=== PATIENT | male | born 1950 | race Caucasian/White ===

== ENCOUNTER 2020-06-12 12:12 | Inpatient (IN) | payer OTHER, SELFPAY ==
[~2020-06-12] VITALS: Ht 175.3 cm; Wt 77.1 kg
--- NOTE | 2020-06-12 12:20 | NUR ---
Patient BIBA ALS, transferred to bed 7. RN evaluating patient at bedside.
--- NOTE | 2020-06-12 12:25 | NUR ---
69 YO M BIBA FOR C/C OF SOB X4 DAYS. PT STATES HE WAS COVID POSITIVE 2 WEEKS AGO AND HAS HAD MILD SYMPTOMS UNTIL SOB BEGAN FOUR DAYS AGO. PT PRESENTS AT 90% O2 ON 15NRB. PT DENIES FEVER, COUGH, N/V/D. PT PLACED ON MARKETING DEVELOPMENT REPRESENTATIVE. BED LOCKED AND IN LOWEST POSITION. SIDE RAILS X2. MED HX: HTN, DM2, COVID
[2020-06-12 12:29] VITALS: BP 153/67
--- NOTE | 2020-06-12 13:08 | NUR ---
XRAY AT BEDSIDE.
--- NOTE | 2020-06-12 13:16 | NUR ---
LABS DRAWN AND TAKEN TO LAB, NOVEL/INFLUENZA/RSV SWABS COLLECTED AND SENT TO LAB
--- NOTE | 2020-06-12 13:26 | NUR ---
EKG AT BEDSIDE
[2020-06-12 13:34] LABS: BASOPHILS # (AUTO) 0.1 K/uL (0.00-0.22); BASOPHILS % (AUTO) 1.2 % (0.0-2.0); EOSINOPHILS # (AUTO) 0.1 K/uL (0-0.4); EOSINOPHILS % (AUTO) 0.5 % (0.0-4.0); HEMATOCRIT 35.9 % (36-52); HEMOGLOBIN 11.9 g/dL (12.0-18.0); LYMPHOCYTES # (AUTO) 0.6 K/uL (2.0-11.5); MEAN CORPUSCULAR HEMOGLOBIN 31 pg (27-31); MEAN CORPUSCULAR HGB CONC 33 g/dL (33-37); MONOCYTES # (AUTO) 0.8 K/uL (0.8-1.0); NEUTROPHILS # (AUTO) 8.8 K/uL (1.8-7.7); NEUTROPHILS % (AUTO) 84.3 % (42.2-75.2); PLATELET COUNT (AUTO) 342 K/uL (140-450); RED BLOOD CELL COUNT(AUTO) 3.82 MIL/uL (4.20-6.10); RED CELL DISTRIBUTION WIDTH 14.7 % (11.6-13.7); WHITE BLOOD COUNT (AUTO) 10.5 K/uL (4.8-10.8)
[2020-06-12] MEDS ORDERED: DEXAMETHASONE 10 MG/ML VIAL IVP ONE (13:35)
[2020-06-12] MEDS ORDERED: AZITHROMYCIN 1,000 MG in DEXTROSE 5% 500 ML IV ONE (13:35)
[2020-06-12 13:52] LABS: APPEARANCE,URINE CLEAR (CLEAR); BILIRUBIN,URINE 2+ (NEGATIVE); BLOOD, URINE NEGATIVE (NEGATIVE); COLOR,URINE ORANGE (YELLOW); LEUKOCYTE ESTERASE ,URINE NEGATIVE (NEGATIVE); NITRITE, URINE NEGATIVE (NEGATIVE); UGLUCOSE NEGATIVE (NEGATIVE)
--- NOTE | 2020-06-12 14:00 | NUR ---
TOTAL URINE OUTPUT VOIDED: 100CC, CLEAR, DANIELLE
[2020-06-12] MEDS ORDERED: AZITHROMYCIN 500 MG INJ VIAL IV ONE (14:02)
[2020-06-12 14:06] LABS: RBC,URINE 0-5 /HPF (0-5); WBC,URINE 0-5 /HPF (0-5)
[2020-06-12 14:13] LABS: ANION GAP 11.7 (8-16); CARBON DIOXIDE 27.1 mmol/L (21-32); CREATININE 0.9 mg/dL (0.6-1.3); POTASSIUM 3.8 mmol/L (3.5-5.1)
[2020-06-12 14:23] LABS: FIBRINOGEN 500 mg/dL (200-400); PROTHROMBIN TIME 11.7 secs (10.8-13.4)
[2020-06-12 14:36] LABS: D-DIMER > 5000 ng/ml (0-400)
[2020-06-12] MEDS ORDERED: ENOXAPARIN 40 MG/0.4 ML SYR SUBQ ONE (14:55)
--- NOTE | 2020-06-12 15:15 | NUR ---
Note undone in ED - 06/12/20 at 1909 by LARRY Smith* PT ASLEEP IN HIGH-FOWLERS . PT GIVEN CUP OF WATER PER REQUEST. ALL PT NEEDS MET AT THIS TIME. EQUAL CHEST RISE AND FALL. VENETIAN BLIND WORKER IN PLACE. BED LOCKED IN LOWEST POSITION, SIDE RAILS X2, CALL LIGHT IN REACH Addendum: 06/12/20 at 1907 by LARRY Smith* Amendment undone in ED - 06/12/20 at 1908 by LARRY Smith* PT SLEEPING IN POSITION OF COMFORT. ALL PT NEEDS MET AT THIS TIME. EQUAL CHEST RISE AND FALL. VENETIAN BLIND WORKER IN PLACE. BED LOCKED IN LOWEST POSITION, SIDE RAILS X2, CALL LIGHT IN REACH
--- NOTE | 2020-06-12 15:15 | NUR ---
PT SLEEPING IN POSITION OF COMFORT. ALL PT NEEDS MET AT THIS TIME. EQUAL CHEST RISE AND FALL. BASIC SCIENCES PROFESSOR IN PLACE. BED LOCKED IN LOWEST POSITION, SIDE RAILS X2, CALL LIGHT IN REACH
[2020-06-12] MEDS ORDERED: ALBUTEROL HFA MDI 90 MCG/ACTUATION 8 GM INH PRN (15:20)
[2020-06-12] MEDS ORDERED: DOCUSATE SODIUM 100 MG GELCAP PO PRN (15:20)
[2020-06-12] MEDS ORDERED: MORPHINE SULFATE 2 MG/ML SYR IVP PRN (15:20)
[2020-06-12] MEDS ORDERED: ZOLPIDEM 5 MG TAB PO PRN (15:20)
[2020-06-12] MEDS ORDERED: ONDANSETRON 4 MG/2 ML VIAL IVP PRN (15:20)
[2020-06-12] MEDS ORDERED: HYDROcodone/APAP 5/325 MG 1 TAB TAB PO PRN (15:20)
[2020-06-12] MEDS: NACL 0.9% 1,000 ML IV SCH (15:46)
[2020-06-12 16:04] LABS: CHOL/HDL RATIO 8.9 (1-4.5); FREE T4 (FREE THYROXINE) 1.4 ng/dL (0.76-1.46); MAGNESIUM 2.7 mg/dL (1.8-2.4); PHOSPHORUS 3.3 mg/dL (2.5-4.9); THYROID STIMULATING HORMONE 1.4 uIU/mL (0.34-3.74)
--- NOTE | 2020-06-12 16:08 | NUR ---
PT SITTING ASLEEP IN BED IN HIGH FOWLERS POSITION. EQUAL CHEST RISE AND FALL. SCHOOL BUS DISPATCHER IN PLACE. ALL PT NEEDS MET. BED LOCKED IN LOWEST POSITION, SIDE RAILS X2, CALL LIGHT IN REACH
[2020-06-12 16:32] LABS: C-REACTIVE PROTEIN QUANT 46.7 mg/dL (0.0-0.9)
[2020-06-12] MEDS ORDERED: METF500T2 PO (16:37)
[2020-06-12] MEDS ORDERED: LEVEMIR SUBQ (16:38)
[2020-06-12] MEDS ORDERED: LOSA100T51 PO (16:39)
[2020-06-12] MEDS ORDERED: INSU100S53 SC (16:39)
[2020-06-12] MEDS ORDERED: OMEP20TC22 PO (16:40)
[2020-06-12 17:01] LABS: LACTATE DEHYDROGENASE 418 U/L (85-227)
--- NOTE | 2020-06-12 18:10 | NUR ---
PT ASSISTED UP BED INTO POSITION OF COMFORT. PT GIVEN CUP OF WATER PER REQUEST. ALL PT NEEDS MET AT THIS TIME. EQUAL CHEST RISE AND FALL. USED CAR MAKE READY WORKER IN PLACE. BED LOCKED IN LOWEST POSITION, SIDE RAILS X2, CALL LIGHT IN REACH
--- NOTE | 2020-06-12 19:26 | NUR ---
REPORT AND TRANSFER OF CARE GIVEN TO HEDY RODRIGUEZ
--- NOTE | 2020-06-12 19:30 | NUR ---
RECEIVED REPORT FROM HEDY CLIFFORD AND [facility]
[2020-06-12] MEDS ORDERED: DEXTROSE 50% 50 ML SYR IVP PRN ×2 (20:05→20:10)
--- NOTE | 2020-06-12 20:05 | NUR ---
JENNIFER SWAB DONE AND HANDED TO PAPER FEEDER
[2020-06-12] MEDS ORDERED: INSULIN LISPRO SLIDING SCALE 100 UNITS/ML VIAL SUBQ PRN (20:10)
[2020-06-12 20:44] LABS: RSV NEGATIVE (NEGATIVE)
[2020-06-12] MEDS ORDERED: BLOOD GLUCOSE MONITORING 1 DEV DEV FS SCH (21:00)
[2020-06-12] MEDS: BLOOD GLUCOSE MONITORING 1 DEV DEV FS SCH (21:29)
--- NOTE | 2020-06-12 23:26 | NUR ---
PT RESTING IN BED WITH NON REBREATHER ON. VSS AND PT APPEARS TO BE IN NO DISTRESS AT THIS TIME.
[2020-06-13] MEDS: NACL 0.9% 1,000 ML IV SCH ×3 (01:39→21:00)
--- NOTE | 2020-06-13 04:15 | NUR ---
Patient appears to be resting comfortably in bed. Vital Signs within normal limits. Respirations even and unlabored.
--- NOTE | 2020-06-13 06:43 | NUR ---
PT ACCIDENTLY PULLED OUT IV FROM LEFT AC. INSERTED A NEW IV INTO RAC 20G
--- NOTE | 2020-06-13 07:21 | NUR ---
REPORT RECEIVED FROM HEDY RODRIGUEZ
[2020-06-13] MEDS ORDERED: ENOXAPARIN 40 MG/0.4 ML SYR SUBQ ONE (07:28)
[2020-06-13] MEDS ORDERED: AZITHROMYCIN 250 MG TAB ONE (07:28)
[2020-06-13] MEDS ORDERED: PANTOPRAZOLE 40 MG TABEC PO ONE (07:29)
[2020-06-13] MEDS: BLOOD GLUCOSE MONITORING 1 DEV DEV FS SCH ×4 (07:30→20:47)
[2020-06-13] MEDS ORDERED: LOSARTAN 25 MG TAB ONE ×2 (07:33→07:36)
[2020-06-13] MEDS: INSULIN LANTUS 100 UNITS/ML 10 ML VIAL SUBQ SCH ×2 (07:34→16:45)
[2020-06-13] MEDS: metFORMIN 500 MG TAB PO SCH ×2 (07:34→17:21)
[2020-06-13] MEDS: LOSARTAN 25 MG TAB PO SCH (07:35)
[2020-06-13] MEDS: PANTOPRAZOLE 40 MG TABEC PO SCH (07:36)
[2020-06-13] MEDS: AZITHROMYCIN 250 MG TAB PO SCH (07:36)
[2020-06-13] MEDS: ENOXAPARIN 40 MG/0.4 ML SYR SUBQ SCH (07:36)
[2020-06-13] MEDS ORDERED: ASCORBIC ACID 500 MG TAB ONE (07:37)
[2020-06-13] MEDS: ASCORBIC ACID 500 MG TAB PO SCH (07:38)
--- NOTE | 2020-06-13 08:31 | NUR ---
PT PLACED IN PRONE POSITION FOR DESAT TO 80% ON 15NRB. PT NOW AT 89% IN PRONE POSITION. EQUAL CHEST RISE AND FALL. HUMANE OFFICER/PULSE OX IN PLACE.
--- NOTE | 2020-06-13 08:35 | NUR ---
BREAKFAST TRAY PROVIDED TO PT BUT UNABLE TO EAT DUE TO NECESSITY TO STAY IN PRONE POSITION.
[2020-06-13] MEDS: VITAMIN D 400 IU TAB PO SCH (09:05)
--- NOTE | 2020-06-13 10:20 | NUR ---
PT DESAT TO 62% ON 15NRB WHILE USING BEDSIDE COMMODE. PT PLACED BACK IN BED IN PRONE POSITION AFTER HAVING DIARRHEA STOOL ON COMMODE. PT BACK TO 94% IN PRONE POSITION. PT PLACED IN DIAPER AND TOLD NOT TO AMBULATE TO COMMODE ANYMORE. MADE AWARE OF PT DESAT, BIPAP ORDER PLACED IF NEEDED. RT AGREES TO HOLD OFF ON BIPAP IF WE CAN MAINTAIN O2 SAT IN PRONE POSITION.
--- NOTE | 2020-06-13 11:10 | NUR ---
PT MAINTAINING 94% O2 SAT IN PRONE POSITION.
[2020-06-13] MEDS: INSULIN LISPRO SLIDING SCALE 100 UNITS/ML VIAL SUBQ PRN ×3 (11:45→20:59)
--- NOTE | 2020-06-13 13:20 | NUR ---
PT'S DAUGHTER CALLED AND RECEIVED STATUS UPDATE ON PT
--- NOTE | 2020-06-13 13:30 | NUR ---
PT ASLEEP IN PRONE POSITION MAINTAINING O2 SAT OF 99%. EQUAL CHEST RISE AND FALL. BED LOCKED AND IN LOWEST POSITION. SIDE RAILS X2. RELATIONS COORDINATOR/PULSE OX IN PLACE. CALL LIGHT IN REACH.
--- NOTE | 2020-06-13 13:37 | NUR ---
PATIENT HAS BEEN SCREENED AND CATEGORIZED MODERATE NUTRITION RISK. PATIENT WILL BE SEEN WITHIN 3-5 DAYS OF ADMISSION. 06/14/20 06/16/[address]
--- NOTE | 2020-06-13 14:45 | NUR ---
PT IS ASLEEP IN PRONE POSITION WITH O2 SAT 99%. EQUAL CHEST RISE AND FALL. ALL PT NEEDS MET AT THIS TIME. BAND MANAGER/PULSE OX IN PLACE. BED LOCKED IN LOWEST POSITION, SIDE RAILS X2, CALL LIGHT IN REACH
--- NOTE | 2020-06-13 15:30 | NUR ---
PT DESAT TO 79% ON 15NRB WHEN ATTEMPTING TO CHNAGE POSITION. PT PLACED BACK IN PRONE POSITION, NOW SATING AT 99% 15NRB. POSITIONED FOR COMFORT. CALL LIGHT IN REACH. ALL PT NEEDS MET AT THIS TIME.
[2020-06-13] MEDS: ACETAMINOPHEN 325 MG TAB PO PRN (15:58)
--- NOTE | 2020-06-13 15:58 | NUR ---
PT MEDICATED WITH PRN TYLENOL FOR 5/10 BODY PAIN
[2020-06-13] MEDS ORDERED: cefTRIAXone 1,000 MG VIAL ONE (16:13)
--- NOTE | 2020-06-13 17:05 | NUR ---
PT ASLEEP IN PRONE POSITION. EQUAL CHEST RISE AND FALL. ALL PT NEEDS MET AT THIS TIME. BED LOCKED IN LOWEST POSITION, SIDE RAILS X 2, CALL LIGHT IN REACH
--- NOTE | 2020-06-13 18:57 | NUR ---
PT PROVIDED WITH DINNER TRAY
--- NOTE | 2020-06-13 19:20 | NUR ---
REPORT AND TRANSFER OF CARE GIVEN TO HEDY ARRIAGA
--- NOTE | 2020-06-13 19:27 | NUR ---
Report received from HEDY Blunt for continuation of care.
--- NOTE | 2020-06-13 20:30 | NUR ---
Pt laying in prone position, per pt he is feeling comfortable and feels like he can breathe better in this position. VSS. Oxygen level at 99% on 15L NRB.
--- NOTE | 2020-06-13 22:58 | NUR ---
Pt sleeping in prone position, visible rise and fall of chest. RR even and unlabored. VSS. Oxygen level 100% at this time.
--- NOTE | 2020-06-14 00:05 | NUR ---
Pt c/o of having SOB & CP pain on inpiration, Oxygen level 77% on 15L NRB. Pt repositioned from prone to supine w/ HOB elevated. Will continue to monitor.
--- NOTE | 2020-06-14 00:48 | NUR ---
Pt resting supine w/ HOB elevated, side rail x2 for pt safety. VSS. Oxygen level 91% on 15L NRB.
--- NOTE | 2020-06-14 02:22 | NUR ---
Pt repositioned to prone per pt request, hob slightly elevated , cardiac monitors placed on pt back. VSS. Oxygen level currently 97%.
--- NOTE | 2020-06-14 03:37 | NUR ---
Pt sleeping in prone position, oxygen level 100% on 15L NRB. No acute distress noted. VSS.
[2020-06-14] MEDS: INSULIN LANTUS 100 UNITS/ML 10 ML VIAL SUBQ SCH ×2 (06:53→16:47)
[2020-06-14] MEDS: BLOOD GLUCOSE MONITORING 1 DEV DEV FS SCH ×4 (06:58→21:14)
[2020-06-14] MEDS: NACL 0.9% 1,000 ML IV SCH ×2 (06:58→17:06)
--- NOTE | 2020-06-14 07:29 | NUR ---
Report given to HEDY Colin for transfer of care.
--- NOTE | 2020-06-14 08:00 | NUR ---
PT ALERT AND AWAKE, REMAINS IN PRONE POSITION 15L NRB MASK, BREATHING EVEN AND LABORED. WILL CONTINUE TO MONITOR
[2020-06-14] MEDS: metFORMIN 500 MG TAB PO SCH ×2 (08:50→17:06)
[2020-06-14] MEDS: VITAMIN D 400 IU TAB PO SCH (08:51)
[2020-06-14] MEDS: LOSARTAN 25 MG TAB PO SCH (08:52)
[2020-06-14] MEDS: PANTOPRAZOLE 40 MG TABEC PO SCH (08:53)
[2020-06-14] MEDS: ASCORBIC ACID 500 MG TAB PO SCH (08:54)
[2020-06-14] MEDS: AZITHROMYCIN 250 MG TAB PO SCH (08:54)
[2020-06-14] MEDS: ENOXAPARIN 40 MG/0.4 ML SYR SUBQ SCH (08:56)
[2020-06-14 09:32] LABS: ANION GAP 13.7 (8-16); CARBON DIOXIDE 27.4 mmol/L (21-32); CREATININE 0.8 mg/dL (0.6-1.3); MAGNESIUM 2.4 mg/dL (1.8-2.4); PHOSPHORUS 2.7 mg/dL (2.5-4.9); POTASSIUM 4.1 mmol/L (3.5-5.1); TOTAL BILIRUBIN 0.5 mg/dL (0.0-1.0)
[2020-06-14 09:38] LABS: BASOPHILS % (AUTO) 0.1 % (0.0-2.0); HEMATOCRIT 39.4 % (36-52); HEMOGLOBIN 12.8 g/dL (12.0-18.0); LYMPHOCYTES # (AUTO) 0.8 K/uL (2.0-11.5); LYMPHOCYTES % (AUTO) 5.7 % (20.5-51.1); MEAN CORPUSCULAR HEMOGLOBIN 31 pg (27-31); MEAN CORPUSCULAR HGB CONC 33 g/dL (33-37); MEAN CORPUSCULAR VOLUME 95.9 fL (80-94); MONOCYTES # (AUTO) 0.7 K/uL (0.8-1.0); MONOCYTES % (AUTO) 5.2 % (1.7-9.3); NEUTROPHILS # (AUTO) 12.6 K/uL (1.8-7.7); PLATELET COUNT (AUTO) 417 K/uL (140-450); RED BLOOD CELL COUNT(AUTO) 4.11 MIL/uL (4.20-6.10); RED CELL DISTRIBUTION WIDTH 15.3 % (11.6-13.7); WHITE BLOOD COUNT (AUTO) 14.2 K/uL (4.8-10.8)
--- NOTE | 2020-06-14 10:00 | NUR ---
PT ALERT AND AWAKE, REMAINS IN PRONE POSITION 15L NRB MASK, BREATHING EVEN AND LABORED. WILL CONTINUE TO MONITOR
[2020-06-14 10:38] LABS: CKMB RELATIVE INDEX 0.5 (0.0-2.5); CREATINE KINASE MB 3.1 ng/mL (0-3.6)
--- NOTE | 2020-06-14 12:00 | NUR ---
PT ALERT AND AWAKE, REMAINS IN PRONE POSITION 15L NRB MASK, BREATHING EVEN AND LABORED. WILL CONTINUE TO MONITOR
[2020-06-14] MEDS ORDERED: cefTRIAXone 1,000 MG VIAL ONE (16:04)
--- NOTE | 2020-06-14 19:27 | NUR ---
RECEIVED REPORT FROM HEDY ADRIAN AND [facility]
--- NOTE | 2020-06-14 19:27 | NUR ---
REPORT GIVEN TO JENNIFER KNOTT, TRANSFER OF CARE AT THIS TIME
--- NOTE | 2020-06-14 21:46 | NUR ---
PT LAYING PRON IN BED. ONE SIDE RAIL UP AND BED LOWEST POSITION. ALL VSS AT THIS TIME.
--- NOTE | 2020-06-14 22:36 | NUR ---
PT HAD A LOOSE WATERY BM. PERICARE PROVIDED. NO SKIN BRWEAKDOWN NOTED.
--- NOTE | 2020-06-14 23:11 | NUR ---
PT FAMILY CALLED FOR UPDATE ON PT.
--- NOTE | 2020-06-15 01:23 | NUR ---
PT LAYING PRONE IN BED ASLEEP IN BED AT THIS TIME. ALL VSS. ONE SIDE RAIL UP AND BED IN LOWEST POSITION.
--- NOTE | 2020-06-15 03:05 | NUR ---
PT SLEEPING IN PRONE POSITION WITH VISIBLE RISE AND FALL OF CHEST. RESPIRATIONS ARE EVEN AND UNLABORED. PT HAS NON REBREATHER MASK AT 100% O2 AT THIS TIME. VSS.
[2020-06-15] MEDS: NACL 0.9% 1,000 ML IV SCH ×3 (04:04→22:59)
--- NOTE | 2020-06-15 05:11 | NUR ---
PT ASLEEP IN PRONE POSITION MAINTAINING O2 SAT OF 99%. EQUAL CHEST RISE AND FALL. BED LOCKED AND IN LOWEST POSITION. SIDE RAILS X2. COLLAR TRIMMER/PULSE OX IN PLACE. CALL LIGHT IN REACH.
[2020-06-15] MEDS: BLOOD GLUCOSE MONITORING 1 DEV DEV FS SCH ×5 (07:34→23:00)
[2020-06-15] MEDS: INSULIN LANTUS 100 UNITS/ML 10 ML VIAL SUBQ SCH ×2 (07:35→16:43)
[2020-06-15] MEDS: metFORMIN 500 MG TAB PO SCH ×2 (07:36→17:00)
[2020-06-15] MEDS ORDERED: CHOLECALCIFEROL 1,000 IU TAB ONE (08:01)
[2020-06-15] MEDS: VITAMIN D 400 IU TAB PO SCH (08:17)
[2020-06-15] MEDS: LOSARTAN 25 MG TAB PO SCH (08:18)
[2020-06-15] MEDS: PANTOPRAZOLE 40 MG TABEC PO SCH (08:19)
[2020-06-15] MEDS: ASCORBIC ACID 500 MG TAB PO SCH (08:19)
[2020-06-15] MEDS: AZITHROMYCIN 250 MG TAB PO SCH (08:20)
[2020-06-15] MEDS: ENOXAPARIN 40 MG/0.4 ML SYR SUBQ SCH (08:21)
--- NOTE | 2020-06-15 08:30 | NUR ---
PT REMAINS ALERT AND AWAKE, BREATHING EVEN AND UNLABORED ON 15L NRB MASK, SPO2 99%
--- NOTE | 2020-06-15 10:10 | NUR ---
RECEIVED THIS 69 YEAR OLD MALE PER BRY FROM ER, AWAKE,ALERT, ORIENTEDX4, WITH O2 AT 15/MIN VIA NON REBREATHER MASK, NOT IN DISTRESS NOTED. ADMITTED A CASE OF COVID AND PNEUMONIA, HYPOXIA. WITH IV CANNULA G20 AT RT AC ON SALINE LOCKED NOTED. SAFETY MEASURES IN PLACE AND CONTINUE MONITOR.
--- NOTE | 2020-06-15 10:10 | NUR ---
Patient will be admitted to care of DR. MULLINS. Admited to TELE. Will go to room 105B. Belongings list completed. Report to AWA KNOTT.
[2020-06-15 10:27] LABS: BASOPHILS % (AUTO) 0.3 % (0.0-2.0); EOSINOPHILS % (AUTO) 0.3 % (0.0-4.0); HEMOGLOBIN 12.7 g/dL (12.0-18.0); LYMPHOCYTES # (AUTO) 0.8 K/uL (2.0-11.5); LYMPHOCYTES % (AUTO) 5.5 % (20.5-51.1); MEAN CORPUSCULAR HEMOGLOBIN 31 pg (27-31); MEAN CORPUSCULAR HGB CONC 32 g/dL (33-37); MEAN CORPUSCULAR VOLUME 95.4 fL (80-94); MONOCYTES # (AUTO) 0.7 K/uL (0.8-1.0); MONOCYTES % (AUTO) 4.6 % (1.7-9.3); NEUTROPHILS # (AUTO) 13.6 K/uL (1.8-7.7); NEUTROPHILS % (AUTO) 89.3 % (42.2-75.2); PLATELET COUNT (AUTO) 439 K/uL (140-450); RED BLOOD CELL COUNT(AUTO) 4.09 MIL/uL (4.20-6.10); RED CELL DISTRIBUTION WIDTH 15.2 % (11.6-13.7); WHITE BLOOD COUNT (AUTO) 15.2 K/uL (4.8-10.8)
[2020-06-15 10:54] LABS: ANION GAP 12.3 (8-16); CREATININE 0.7 mg/dL (0.6-1.3); POTASSIUM 4.3 mmol/L (3.5-5.1)
--- NOTE | 2020-06-15 12:26 | NUR ---
GLUCOSE-76 NO INSULIN COVERAGE, STILL ON PRONE POSITION,NOT IN DISTRESS NOTED
--- NOTE | 2020-06-15 14:20 | NUR ---
ON LEFT SIDE LYING POSITION , STILL ON NON REBREATHER MASK, NOT IN DISTRESS NOTED
--- NOTE | 2020-06-15 16:41 | NUR ---
GLUCOSE-107, NO INSULIN COVERAGE FOR HUMALOG, DUE LANTUS SUBQ GIVEN. NOT IN DISTRESS NOTED AND ABLE TO TURN AT LEFT SIDE LYING POSITION.
--- NOTE | 2020-06-15 17:11 | NUR ---
DUE METFORMIN NON ADMINISTER, PATIENT HAD POOR APPETITE AND ON O2 AT 15L/MIN VIA NON REBREATHER MASK.
--- NOTE | 2020-06-15 19:14 | NUR ---
ENDORSED TO SOCIAL HUMAN SERVICES ASSISTANTS IN STABLE CONDITION FOR CONTINUITY OF CARE
[2020-06-15 20:00] VITALS: BP 131/61
[2020-06-16] VITALS: BP 146/59
--- NOTE | 2020-06-16 | NUR ---
MADE ROUNDS , NO S/SX OF ACUTE DISTRESS NOTED . CALL LIGHT WITHIN REACH .
[2020-06-16 04:00] VITALS: BP 127/46
--- NOTE | 2020-06-16 04:00 | NUR ---
O2 SAT WNL . NO S/SX OF ACUTE DISTRESS NOTED
[2020-06-16] MEDS: INSULIN LANTUS 100 UNITS/ML 10 ML VIAL SUBQ SCH ×2 (06:07→17:30)
[2020-06-16] MEDS: BLOOD GLUCOSE MONITORING 1 DEV DEV FS SCH ×4 (06:07→22:15)
--- NOTE | 2020-06-16 06:30 | NUR ---
ACCU CHECK - 61 - WILL GIVE ORANGE JUICE AND VANILLA PUDDING .
--- NOTE | 2020-06-16 07:40 | NUR ---
ENDORSED PT - STABLE - ENDORSED TO AM NURSE SHE HAVE TO RE CHECK THE BLOOD SUGAR BEC . PT JUST ATE PUDDING .
[2020-06-16 07:54] LABS: BASOPHILS # (AUTO) 0.1 K/uL (0.00-0.22); BASOPHILS % (AUTO) 0.7 % (0.0-2.0); EOSINOPHILS # (AUTO) 0.1 K/uL (0-0.4); EOSINOPHILS % (AUTO) 0.4 % (0.0-4.0); HEMATOCRIT 35.7 % (36-52); HEMOGLOBIN 11.7 g/dL (12.0-18.0); LYMPHOCYTES # (AUTO) 1.3 K/uL (2.0-11.5); LYMPHOCYTES % (AUTO) 9.2 % (20.5-51.1); MEAN CORPUSCULAR HEMOGLOBIN 31 pg (27-31); MEAN CORPUSCULAR HGB CONC 33 g/dL (33-37); MEAN CORPUSCULAR VOLUME 94.9 fL (80-94); MONOCYTES # (AUTO) 0.6 K/uL (0.8-1.0); MONOCYTES % (AUTO) 4.4 % (1.7-9.3); NEUTROPHILS # (AUTO) 12.5 K/uL (1.8-7.7); NEUTROPHILS % (AUTO) 85.3 % (42.2-75.2); PLATELET COUNT (AUTO) 409 K/uL (140-450); RED BLOOD CELL COUNT(AUTO) 3.76 MIL/uL (4.20-6.10); RED CELL DISTRIBUTION WIDTH 15.3 % (11.6-13.7); WHITE BLOOD COUNT (AUTO) 14.6 K/uL (4.8-10.8)
[2020-06-16 08:00] VITALS: BP 107/59
[2020-06-16] MEDS: metFORMIN 500 MG TAB PO SCH ×2 (08:16→18:05)
[2020-06-16] MEDS: AZITHROMYCIN 250 MG TAB PO SCH (08:17)
[2020-06-16] MEDS: PANTOPRAZOLE 40 MG TABEC PO SCH (08:17)
[2020-06-16] MEDS: ASCORBIC ACID 500 MG TAB PO SCH (08:17)
[2020-06-16] MEDS: VITAMIN D 400 IU TAB PO SCH (08:18)
[2020-06-16] MEDS: LOSARTAN 25 MG TAB PO SCH (08:19)
[2020-06-16] MEDS: ENOXAPARIN 40 MG/0.4 ML SYR SUBQ SCH (08:19)
[2020-06-16 08:23] LABS: ANION GAP 14.7 (8-16); CARBON DIOXIDE 24.1 mmol/L (21-32); CREATININE 0.6 mg/dL (0.6-1.3); POTASSIUM 3.8 mmol/L (3.5-5.1)
--- NOTE | 2020-06-16 08:37 | NUR ---
ADMINISTERED PRESCRIBED MEDS PER MD ORDER. PATIENT TOLERATED WELL. MEDICATION EDUCATION PROVIDED. REINFORCEMENT NEEDED DUE TO LANGUAGE BARRIER. SAFETY MEASURES IN PLACE. WILL CONT TO MONITOR.
[2020-06-16 12:00] VITALS: BP 134/67
[2020-06-16] MEDS: NACL 0.9% 1,000 ML IV SCH ×2 (12:42→23:06)
--- NOTE | 2020-06-16 12:42 | NUR ---
PATIENT BG 116, NO INSULIN COVERAGE NEEDED. PATIENT IVF GIVEN. CHEST XRAY CURRENTLY BEING CONDUCTED AT BEDSIDE. SAFETY MEASURES IN PLACE. WILL CONT TO MONITOR.
--- NOTE | 2020-06-16 14:36 | NUR ---
SOCIAL WORK NOTE: JASWINDER WAS UNABLE TO MEET PATIENT AT BEDSIDE. JASWINDER LEFT VM TO PATIENT'S CONTACT NUMBER [phone] AND LEFT VM. JASWINDER CONTACTED RN BUT NO ADDITIONAL CONTACTS WERE AVAILABLE. JASWINDER WILL FOLLOW UP. Addendum: 06/19/20 at 1034 by Virgilio Cui JASWINDER LEFT ADDITIONAL VM TO PATIENT'S CONTACT. JASWINDER CONTACTED RN BUT NO ADDITIONAL CONTACTS WERE AVAILABLE. JASWINDER WILL CONTINUE TO FOLLOW UP. Addendum: 06/24/20 at 1143 by Virgilio Cui JASWINDER CONTACTED NURSE FOR ADDITIONAL CONTACTS BUT NO CONTACTS WERE AVAILABLE. JASWINDER WILL FOLLOW UP TO COMPLETE ASSESSMENT.
[2020-06-16 16:00] VITALS: BP 112/60
--- NOTE | 2020-06-16 16:33 | NUR ---
ADMINISTERED PRESCRIBED MEDS PER MD ORDER. PATIENT TOLERATED WELL. MEDICATION REINFORCEMENT NEEDED. SAFETY MEASURES IN PLACE. WILL CONT TO MONITOR.
--- NOTE | 2020-06-16 17:14 | NUR ---
06/16/20 RD INITIAL ASSESSMENT COMPLETED PLEASE REFER TO NUTRITION ASSESSMENT UNDER CARE ACTIVITY FOR ESTIMATED NUTRITIONAL NEEDS. 1. CONTINUE GROUND CCHO 60GM DIET TOLERATED 2. RECOMMEND GLUCERNA TID 3. ENCOURAGE PO INTAKE >50% 4. RD TO FOLLOW-UP 2-3 DAYS, HIGH RISK TERRY LY, RD
--- NOTE | 2020-06-16 17:34 | NUR ---
ADMINISTERED PRESCRIBED INSULIN LANTUS PER MD ORDER. PATIENT BG 185. PATIENT TOLERATED WELL. SAFETY MEASURES IN PLACE. WILL CONT TO MONITOR.
--- NOTE | 2020-06-16 18:09 | NUR ---
ADMINISTERED PRESCRIBED MEDS PER MD ORDER. PATIENT TOLERATED WELL. REINFORCEMENT NEEDED DUE TO LANGUAGE BARRIER. SAFETY MEASURES IN PLACE. WILL CONT TO MONITOR.
[2020-06-16 20:00] VITALS: BP 118/56
[2020-06-16] MEDS: INSULIN LISPRO SLIDING SCALE 100 UNITS/ML VIAL SUBQ PRN (23:07)
[2020-06-17] VITALS: BP 119/59
--- NOTE | 2020-06-17 | NUR ---
MADE ROUNDS , NO S/SX OF ACUTE DISTRESS NOTED . CALL LIGHT WITHIN REACH . O2 SAT WNL.
--- NOTE | 2020-06-17 02:00 | NUR ---
SLEEPING - CHEST RISE AND FALL EQUALLY .
--- NOTE | 2020-06-17 04:00 | NUR ---
O2 SAT WNL . NO S/SX OF ACUTE DISTRESS NOTED .
[2020-06-17] MEDS: NACL 0.9% 1,000 ML IV SCH ×2 (05:20→15:20)
[2020-06-17 06:07] VITALS: BP 122/69
[2020-06-17] MEDS: INSULIN LANTUS 100 UNITS/ML 10 ML VIAL SUBQ SCH ×2 (06:30→16:48)
[2020-06-17] MEDS: BLOOD GLUCOSE MONITORING 1 DEV DEV FS SCH ×3 (07:01→16:44)
--- NOTE | 2020-06-17 07:25 | NUR ---
ENDORSED - PT - STABLE .
--- NOTE | 2020-06-17 07:30 | NUR ---
RECEIVED REPORT FROM NIGHTSHIFT NURSE. PT RESTING IN BED. ABLE TO MAKE NEEDS KNOWN. RESPIRATIONS EVEN AND UNLABORED WITH NO SOB OR RESPIRATORY DISTRESS. SKIN WARM AND DRY TO TOUCH. IV SITE IN L HAND 22G IS CLEAN, DRY, AND INTACT. SAFETY MEASURES IN PLACE. WILL CONTINUE TO MONITOR
[2020-06-17 08:00] VITALS: BP 102/51
[2020-06-17] MEDS: metFORMIN 500 MG TAB PO SCH ×2 (08:00→16:50)
[2020-06-17 08:35] LABS: BASOPHILS % (AUTO) 0.2 % (0.0-2.0); EOSINOPHILS # (AUTO) 0.1 K/uL (0-0.4); EOSINOPHILS % (AUTO) 0.4 % (0.0-4.0); HEMATOCRIT 36.3 % (36-52); HEMOGLOBIN 11.8 g/dL (12.0-18.0); LYMPHOCYTES # (AUTO) 1.1 K/uL (2.0-11.5); LYMPHOCYTES % (AUTO) 8.6 % (20.5-51.1); MEAN CORPUSCULAR HEMOGLOBIN 31 pg (27-31); MEAN CORPUSCULAR HGB CONC 33 g/dL (33-37); MONOCYTES # (AUTO) 0.6 K/uL (0.8-1.0); MONOCYTES % (AUTO) 4.6 % (1.7-9.3); NEUTROPHILS # (AUTO) 11.1 K/uL (1.8-7.7); NEUTROPHILS % (AUTO) 86.2 % (42.2-75.2); PLATELET COUNT (AUTO) 394 K/uL (140-450); RED BLOOD CELL COUNT(AUTO) 3.83 MIL/uL (4.20-6.10); RED CELL DISTRIBUTION WIDTH 15.3 % (11.6-13.7); WHITE BLOOD COUNT (AUTO) 12.8 K/uL (4.8-10.8)
--- NOTE | 2020-06-17 09:30 | NUR ---
ADMINISTERED SCHED MED PRESCRIBED PER MD ORDER. PT TOLERATED WELL. MEDICATION EDUCATION PERFORMED. PT VERBALIZED UNDERSTANDING. SAFETY MEASURES IN PLACE. WILL CONTINUE TO MONITOR
[2020-06-17] MEDS: LOSARTAN 25 MG TAB PO SCH (09:55)
[2020-06-17] MEDS: VITAMIN D 400 IU TAB PO SCH (09:55)
[2020-06-17] MEDS: PANTOPRAZOLE 40 MG TABEC PO SCH (09:56)
[2020-06-17] MEDS: AZITHROMYCIN 250 MG TAB PO SCH (09:56)
[2020-06-17] MEDS: ASCORBIC ACID 500 MG TAB PO SCH (09:57)
[2020-06-17 10:12] LABS: ANION GAP 13.4 (8-16); CREATININE 0.6 mg/dL (0.6-1.3); POTASSIUM 4.4 mmol/L (3.5-5.1)
[2020-06-17] MEDS ORDERED: ENOXAPARIN 40 MG/0.4 ML SYR SUBQ SCH (10:15)
--- NOTE | 2020-06-17 11:30 | NUR ---
PT BLOOD SUGAR IS 86. NO INSULIN NEEDED AT THIS TIME. SAFETY MEASURES IN PLACE. WILL CONTINUE TO MONITOR
[2020-06-17 12:00] VITALS: BP 135/54
--- NOTE | 2020-06-17 13:15 | NUR ---
PT RESTING IN BED. ABLE TO MAKE NEEDS KNOWN. RESPIRATIONS EVEN AND UNLABORED WITH NO SOB OR RESPIRATORY DISTRESS. SKIN WARM AND DRY TO TOUCH. SAFETY MEASURES IN PLACE. WILL CONTINUE TO MONITOR
[2020-06-17 16:00] VITALS: BP 114/72
--- NOTE | 2020-06-17 16:30 | NUR ---
PT BLOOD SUGAR IS 144. NO INSULIN NEEDED AT THIS TIME. SAFETY MEASURES IN PLACE. WILL CONTINUE TO MONITOR
--- NOTE | 2020-06-17 17:09 | NUR ---
ADMINISTERED SCHED MED PRESCRIBED PER MD ORDER. PT TOLERATED WELL. MEDICATION EDUCATION PERFORMED. PT VERBALIZED UNDERSTANDING. SAFETY MEASURES IN PLACE. WILL CONTINUE TO MONITOR
[2020-06-17 20:00] VITALS: BP 124/60
[2020-06-17] MEDS: ENOXAPARIN 80 MG/0.8 ML SYR SUBQ SCH (22:15)
[2020-06-17] MEDS: INSULIN LISPRO SLIDING SCALE 100 UNITS/ML VIAL SUBQ PRN (22:15)
[2020-06-18] VITALS: BP 156/64
--- NOTE | 2020-06-18 | NUR ---
MADE ROUNDS , NO S/SX OF ACUTE DISTRESS NOTED , O2 SAT WNL .
--- NOTE | 2020-06-18 02:00 | NUR ---
SLEEPING - CALL LIGHT WITHIN REACH .
[2020-06-18 04:00] VITALS: BP 143/58
--- NOTE | 2020-06-18 04:00 | NUR ---
O2 SAT WNL . NO S/SX OF ACUTE DISTRESS NOTED . CALL LIGHT WITHIN REACH .
--- NOTE | 2020-06-18 06:00 | NUR ---
NO COMPLAIN MADE - O2 SAT WNL .
[2020-06-18] MEDS: NACL 0.9% 1,000 ML IV SCH ×3 (06:35→20:17)
[2020-06-18] MEDS: INSULIN LANTUS 100 UNITS/ML 10 ML VIAL SUBQ SCH ×2 (06:37→16:30)
[2020-06-18] MEDS: INSULIN LISPRO SLIDING SCALE 100 UNITS/ML VIAL SUBQ PRN ×3 (06:39→21:26)
[2020-06-18] MEDS: BLOOD GLUCOSE MONITORING 1 DEV DEV FS SCH ×4 (06:40→21:26)
--- NOTE | 2020-06-18 07:50 | NUR ---
ENDORSED TO AM SHIFT - FOR CONSENT FOR CT ANGIO CHEST - THE PT IS STILL UNDECIDED FOR CT ANGIO CHEST - I TOLD TO THE AM NURSE LET DOCTOR OR COMPACTING MACHINE OPERATOR/TENDER RE EXPLAIN TO THE PT WHAT IS CT ANGIO CHEST IS ALL ABOUT .
[2020-06-18] MEDS: metFORMIN 500 MG TAB PO SCH ×2 (08:00→17:00)
[2020-06-18 08:47] LABS: ANION GAP 9.9 (8-16); CARBON DIOXIDE 28.7 mmol/L (21-32); CREATININE 0.7 mg/dL (0.6-1.3); POTASSIUM 4.6 mmol/L (3.5-5.1)
[2020-06-18 08:57] LABS: BASOPHILS % (AUTO) 0.4 % (0.0-2.0); EOSINOPHILS % (AUTO) 0.1 % (0.0-4.0); HEMATOCRIT 35.2 % (36-52); HEMOGLOBIN 11.6 g/dL (12.0-18.0); LYMPHOCYTES # (AUTO) 0.9 K/uL (2.0-11.5); LYMPHOCYTES % (AUTO) 9.2 % (20.5-51.1); MEAN CORPUSCULAR HEMOGLOBIN 31 pg (27-31); MEAN CORPUSCULAR HGB CONC 33 g/dL (33-37); MEAN CORPUSCULAR VOLUME 94.8 fL (80-94); MONOCYTES # (AUTO) 0.4 K/uL (0.8-1.0); MONOCYTES % (AUTO) 4.8 % (1.7-9.3); NEUTROPHILS % (AUTO) 85.5 % (42.2-75.2); PLATELET COUNT (AUTO) 401 K/uL (140-450); RED BLOOD CELL COUNT(AUTO) 3.71 MIL/uL (4.20-6.10); RED CELL DISTRIBUTION WIDTH 14.9 % (11.6-13.7); WHITE BLOOD COUNT (AUTO) 9.3 K/uL (4.8-10.8)
[2020-06-18] MEDS: ENOXAPARIN 80 MG/0.8 ML SYR SUBQ SCH ×2 (09:00→21:25)
[2020-06-18] MEDS: LOSARTAN 25 MG TAB PO SCH (09:01)
[2020-06-18] MEDS: VITAMIN D 400 IU TAB PO SCH (09:08)
[2020-06-18] MEDS: PANTOPRAZOLE 40 MG TABEC PO SCH (09:09)
[2020-06-18] MEDS: ASCORBIC ACID 500 MG TAB PO SCH (09:24)
--- NOTE | 2020-06-18 12:03 | NUR ---
DC PLANNIN YRS OLD MALE PATIENT WAS ADMITTED FROM HOME WITH A DX OF SEVER HYPOXIA, COVID PNEUMONIA. RAPID AND PCR COVID TEST NEGATIVE, PT IS ON 15LNRB SATING 93%. URINE CULTURE PENDING. CONSULTED WITH ID AND TALHA. DC PLAN TO GO HOME WHEN STABLE CM TO FOLLOW Addendum: 06/21/20 at 1609 by Elizabeth Osman CM DC ASSISTANT TO THE VICE PRESIDENT: RECEIVED AN ORDER FOR HOME O2, SEEN IN THE H&P THAT PATIENT WAS PREVIOUSLY SENT HOME WITH HOME O2 CONTACTED PATIENTS DAUGHTER SARA [phone] TO CLARIFY. SHE STATED THAT PATIENT ALREADY HAS HOME O2. NOTIFIED DR. NOLAND Addendum: 06/23/20 at 1543 by Cass Torres CM REMAINS ON HUMIDIFIED O2 AT 15L, O2 SAT 97%. ON DECADRON. Addendum: 06/25/20 at 1152 by Elizabeth Osman CM СЕРГЕЙ VENTURA: PATIENTS FAMILY IS REQUESTING FOR SNF PLACEMENT. SPOKE TO SUZANNE WATKINS FROM [facility] [phone] SHE PROVIDED CONTRACTED FACILITIES [facility], [facility], AND [facility]. WILL FAX TO FACILITIES. Addendum: 06/25/20 at 1427 by Elizabeth Osman CM СЕРГЕЙ VENTURA: RECEIVED A CALL BACK FROM [facility] THEY ARE REVIEWING PATIENTS CLINICALS. Addendum: 06/25/20 at 1439 by Elizabeth Osman CM СЕРГЕЙ VENTURA: RECEIVED A CALL FROM CHYNA AT [facility], ONCE PATIENTS OXYGEN IS AT 5-7 LITERS THEY ARE ABLE TO ACCEPT AT THIS TIME THEY CAN NOT ACCEPT PATIENT ON 15L Addendum: 06/26/20 at 1258 by Cass Torres CM PER RT SALVADOR, PATIENT IS ON HUMIDIFIED O2 AT 8 LPM. CHARGE NURSE MADE AWARE. Addendum: 06/27/20 at 1118 by Elizabeth Osman CM DC ASSISTANT TO THE VICE PRESIDENT: PATRICIA DELGADO AT [facility] THEY CAN NOT ACCEPT PATIENT ON 7.0 LITERS OF OXYGEN. EDMOND AT [facility]/ [facility] SHE IS REVIEWING PATIENTS CLINICALS. Addendum: 06/27/20 at 1212 by Elizabeth Osman CM DC ASSISTANT TO THE VICE PRESIDENT: EDMOND SEBASTIAN [facility] CAN NOT ACCEPT EITHER WITH 7.0 L Addendum: 06/27/20 at 1517 by Elizabeth Osman CM DC ASSISTANT TO THE VICE PRESIDENT: FOLLOWED UP WITH [facility]. PER CHYNA THEY NEED PROOF THAT PATIENT HAS SNF DAYS. TRIED CONTACTED SUZANNE KAT FROM [facility] MULTIPLE TIMES BUT NO ANSWER. LEFT A VOICEMAIL. Addendum: 06/27/20 at 1541 by Cass Torres CONTACTED SUZANNE KAT OF [facility], NO ANSWER LEFT MESSAGE. PER VOICE PROMPT IF SHE DOES NOT RETURN THE PHONE WITHIN AN HOUR TO CALL HER AVIONICS SYSTEM ENGINEER JADEN MUNOZ AT [phone]. CONTACTED JADEN MUNOZ. PER JADEN, SHEY IS IN RIGHT NOW BUT SHE WILL RELAY THE MESSAGE TO SHEY. 1530: RECEIVED A CALL BACK FROM SHEY WATKINS. SHE STATED SHE ALREADY SPOKE TO [facility] ELIZABETH. Addendum: 06/27/20 at 1548 by Elizabeth Osman CM СЕРГЕЙ VENTURA: SPOKE URSULA AT [facility] THEY ARE UNABLE TO ACCEPT THIS PATIENT BECAUSE PATIENT HAS AN OPEN MSP CASE. Addendum: 06/27/20 at 1627 by Elizabeth Osman CM СЕРГЕЙ VENTURA: FOLLOWED UP WITH SANDY AT [facility]. PATIENT IS NOW ON 5.0 LITERS. THEY ARE ABLE TO ACCEPT SHE WILL CALL ME BACK SHORTLY WITH A ROOM NUMBER AND ONCE SHE GETS AUTH FROM [facility]. PROVIDED HER WITH SUZANNE WATKINS'S NUMBER. Addendum: 06/27/20 at 1639 by Elizabeth Osman CM СЕРГЕЙ VENTURA: CONTACTED [facility] TO GET TRANSPORTATION AUTH [id number]. SHE STATED THAT WE COULD USE [facility] [phone]. CONTACTED [facility]ONDA GRADY THEY DO NOT HAVE ANY AVAILABLE TRANSPORTATIONS FOR TODAY. Addendum: 06/27/20 at 1654 by Elizabeth Osman CM СЕРГЕЙ VENTURA: PATIENT HAS BEEN ACCEPTED AT [facility] ROOM [address] [place]. Addendum: 06/27/20 at 1700 by Elizabeth Osman CM [address] [place] [address] [place] Addendum: 06/27/20 at 1703 by Elizabeth Osman CM СЕРГЕЙ VENTURA: TRANSPORTATION HAS BEEN SET UP WITH [facility] FOR 6:30 PM [phone]. NOTIFIED HEDY [facility]. CONTACTED PATIENTS DAUGHTER SHEILA [phone] TO NOTIFY HER OF DISCHARGE TO [facility].
[2020-06-18 20:00] VITALS: BP 101/49
[2020-06-18] MEDS: guaiFENesin 600 MG TABER PO SCH (21:12)
[2020-06-19 00:30] VITALS: BP 148/70
--- NOTE | 2020-06-19 00:30 | NUR ---
CALLED TO BEDSIDE DUE TO PT DESATURATING. NO INCREASE IN WORK OF BREATHING. PLACED PT ON HIGH FLOW BUBBLE HUMIDIFIER PLUS NRB. SPO2 92%. PT DID NOT TOLERATE PRONING. RN AT BEDSIDE. INFORMED TO TITRATED O2 TOLERATED. WILL CONTINUE TO MONITOR PT.
--- NOTE | 2020-06-19 00:32 | NUR ---
PT COMPLAINING OF DIFFICULTY BREATHING, PUT ON HIGH FOWLERS POSITION, SAT-74% ON 6L HUMIDIFIED O2 NC, RT PAGED, INCREASED TO 10L AND SAT WENT UP TO 76%, CHANGED O2 TO NON-REBREATHER MASK 15L, SAT WENT UP TO 85%, RT YAZDANISM CAME IN AND ASSES PT, ENCOURAGE PT TO PRONE POSITION BUT PT CANNOT TOLERATE IT, PUT ON 15L HUMIDIFIED O2 NC AND 15L NONREBREATHER MASK, SAT BETWEEN 92-94%, PT APPEARS COMFORTABLE, MONITORED CLOSELY.
--- NOTE | 2020-06-19 01:10 | NUR ---
SEEN PT SLEEPING, SAT-100%, NRB MASK DECREASED TO 13L, MONITORED CLOSELY.
--- NOTE | 2020-06-19 01:40 | NUR ---
SEEN PT SLEEPING, SAT-99%, NRB MASK DECREASE TO 11 L, NO SIGNS OF RESP DISTRESS, MONITORED CLOSELY.
--- NOTE | 2020-06-19 02:30 | NUR ---
SAT-99%, 15L NRB MASK TURNED OFF, PT ON 15L HUMIDIFIED AIR VIA NC AT THIS TIME, NO RESP DISTRESS NOTED, MONITORED CLOSELY.
--- NOTE | 2020-06-19 03:00 | NUR ---
PT SLEEPING, SEEN WITH SAT-99% ON 15L HUMIDIFIED AIR VIA NC, NO RESP DISTRESS NOTED, RT NAHUN MADE AWARE, STATED HE WILL CHECK PT.
[2020-06-19 04:00] VITALS: BP 131/79
[2020-06-19] MEDS: INSULIN LANTUS 100 UNITS/ML 10 ML VIAL SUBQ SCH ×2 (06:30→17:30)
[2020-06-19] MEDS: BLOOD GLUCOSE MONITORING 1 DEV DEV FS SCH ×4 (06:54→20:50)
[2020-06-19] MEDS: NACL 0.9% 1,000 ML IV SCH ×2 (06:54→18:47)
--- NOTE | 2020-06-19 07:34 | NUR ---
PT SLEEPING, NO SIGNS OF DISTRESS, SAT-95%, REPORT GIVEN TO HEDY ZHENG FOR CONTINUITY OF CARE.
[2020-06-19 08:46] LABS: BASOPHILS % (AUTO) 0.2 % (0.0-2.0); EOSINOPHILS # (AUTO) 0.1 K/uL (0-0.4); EOSINOPHILS % (AUTO) 0.9 % (0.0-4.0); HEMOGLOBIN 12.8 g/dL (12.0-18.0); LYMPHOCYTES # (AUTO) 1.3 K/uL (2.0-11.5); MEAN CORPUSCULAR HEMOGLOBIN 31 pg (27-31); MEAN CORPUSCULAR HGB CONC 32 g/dL (33-37); MEAN CORPUSCULAR VOLUME 95.4 fL (80-94); MONOCYTES # (AUTO) 0.6 K/uL (0.8-1.0); MONOCYTES % (AUTO) 5.8 % (1.7-9.3); NEUTROPHILS # (AUTO) 8.2 K/uL (1.8-7.7); NEUTROPHILS % (AUTO) 80.1 % (42.2-75.2); PLATELET COUNT (AUTO) 421 K/uL (140-450); RED BLOOD CELL COUNT(AUTO) 4.19 MIL/uL (4.20-6.10); RED CELL DISTRIBUTION WIDTH 15.4 % (11.6-13.7); WHITE BLOOD COUNT (AUTO) 10.2 K/uL (4.8-10.8)
[2020-06-19 08:47] LABS: ANION GAP 12.9 (8-16); CARBON DIOXIDE 28.6 mmol/L (21-32); CREATININE 0.8 mg/dL (0.6-1.3); POTASSIUM 4.5 mmol/L (3.5-5.1)
[2020-06-19] MEDS: guaiFENesin 600 MG TABER PO SCH ×2 (09:24→20:44)
[2020-06-19] MEDS: ASCORBIC ACID 500 MG TAB PO SCH (09:24)
[2020-06-19] MEDS: PANTOPRAZOLE 40 MG TABEC PO SCH (09:25)
[2020-06-19] MEDS: VITAMIN D 400 IU TAB PO SCH (09:26)
[2020-06-19] MEDS: metFORMIN 500 MG TAB PO SCH ×2 (09:26→17:00)
[2020-06-19] MEDS: LOSARTAN 25 MG TAB PO SCH (09:33)
[2020-06-19] MEDS: ENOXAPARIN 80 MG/0.8 ML SYR SUBQ SCH ×2 (09:34→20:45)
--- NOTE | 2020-06-19 16:18 | NUR ---
06/19/20 RD FOLLOW UP COMPLETED PLEASE REFER TO NUTRITION ASSESSMENT UNDER CARE ACTIVITY FOR ESTIMATED NUTRITIONAL NEEDS. 1. CONTINUE GROUND CCHO 60GM DIET TOLERATED 2. CONTINUE GLUCERNA TID 3. ENCOURAGE PO INTAKE >50% 4. RD TO FOLLOW-UP 2-3 DAYS, HIGH RISK TERRY LY, RD
[2020-06-19] MEDS: INSULIN LISPRO SLIDING SCALE 100 UNITS/ML VIAL SUBQ PRN ×2 (18:06→20:45)
--- NOTE | 2020-06-19 19:15 | NUR ---
RECEIVED PT AWAKE ON HIGH FOWLERS POSITION, NO RESP DISTRESS WITH SAT OF 93% ON 8L HUMIDIFIED O2 VIA NC, IVF INFUSING WELL, MAINTAINED ON DROPLET PRECAUTION, SAFETY MEASURES IN PLACE, CALL LIGHT WITHIN REACH.
[2020-06-19 20:00] VITALS: BP 118/66
--- NOTE | 2020-06-19 22:50 | NUR ---
SEEN PT AWAKE SITTING UP ON BED WATCHING TV, SAT-95% ON 8L HUMIDIFIED O2 VIA NC, NO RESP DISTRESS NOTED, MONITORED CLOSELY.
[2020-06-20] VITALS: BP 119/64
--- NOTE | 2020-06-20 02:30 | NUR ---
SEEN PT SLEEPING, SAT-96% ON 8L HUMIDIFIED O2 NC, NO RESP DISTRESS NOTED, MONITORED CLOSELY.
[2020-06-20 04:00] VITALS: BP 115/70
[2020-06-20] MEDS: NACL 0.9% 1,000 ML IV SCH ×3 (04:46→23:20)
[2020-06-20] MEDS: INSULIN LANTUS 100 UNITS/ML 10 ML VIAL SUBQ SCH ×2 (06:30→16:52)
[2020-06-20] MEDS: BLOOD GLUCOSE MONITORING 1 DEV DEV FS SCH ×4 (06:54→21:26)
--- NOTE | 2020-06-20 07:15 | NUR ---
RECEIVED REPORT FROM DATA PROCESSING SPECIALIST RN FOR CONTINUITY OF CARE. PATIENT RESTING IN BED, AWAKE, O2 SAT 98% WITH 8L NC WITH HUMIDIFIER. HR 57, RESPIRATORY EVEN, WITHOUT RESPIRATORY DISTRESS NOTED. IV SITE LEFT HAND 22 G, INFUSING NS @ 100ML/HR. SKIN INTACT. NO ACUTE DISTRESS NOTED. SAFETY MEASURES IN PLACE, WILL CONTINUE TO MONITOR.
--- NOTE | 2020-06-20 07:15 | NUR ---
PT AWAKE, NO SIGNS OF DISTRESS, REPORT GIVEN TO RN RICARDO FOR CONTINUITY OF CARE.
[2020-06-20 08:00] VITALS: BP 130/66
[2020-06-20] MEDS: metFORMIN 500 MG TAB PO SCH ×2 (08:00→17:00)
[2020-06-20] MEDS: VITAMIN D 400 IU TAB PO SCH (08:53)
[2020-06-20] MEDS: ASCORBIC ACID 500 MG TAB PO SCH (08:53)
[2020-06-20] MEDS: LOSARTAN 25 MG TAB PO SCH (08:54)
[2020-06-20] MEDS: guaiFENesin 600 MG TABER PO SCH ×2 (08:54→21:15)
[2020-06-20] MEDS: PANTOPRAZOLE 40 MG TABEC PO SCH (08:54)
[2020-06-20] MEDS: ENOXAPARIN 80 MG/0.8 ML SYR SUBQ SCH ×2 (08:55→21:15)
--- NOTE | 2020-06-20 09:05 | NUR ---
SCHEDULED MORNING MEDICATIONS GIVEN. EDUCATION PROVIDED. SAFETY MEASURES IN PLACE. SOB ON MILD EXERTION. O2 SAT 82-84% ON 5L HUMIDIFIED O2 VIA NC. INCREASED TO 7L. O2 SAT 87-88%. HR 71. BREAKFAST TRAY PASSED. ENCOURAGED PATIENT TO TAKE DEEP BREATH AND RELAX. PER PATIENT, HE DOES NOT TOLERATE MILK AND GLUCERNA, CAUSE GAS AND DIARRHEA. WILL INFORM FNS/DIETITIAN. SAFETY MEASURES IN PLACE, WILL CONTINUE TO MONITOR.
[2020-06-20] MEDS: INSULIN LISPRO SLIDING SCALE 100 UNITS/ML VIAL SUBQ PRN ×3 (11:59→21:27)
[2020-06-20 12:00] VITALS: BP 118/67
[2020-06-20 16:00] VITALS: BP 118/67
--- NOTE | 2020-06-20 19:35 | NUR ---
RECEIVED BEDSIDE REPORT FROM DAY SHIFT NURSE. PATIENT IS AWAKE, ALERT, AND COOPERATIVE. RESPIRATION EVEN UNLABORED ON 6L NC O2. NO DISTRESS NOTED. SKIN IS WARM AND DRY. IV PATENT AND INTACT, PLAN OF CARE WAS DISCUSSED. ALL SAFETY MEASURES IN PLACE. BED IS AT LOW POSITION. CALL LIGHT WITHIN REACH. WILL CONTINUE TO MONITOR.
[2020-06-20 20:00] VITALS: BP 112/60
--- NOTE | 2020-06-20 21:10 | NUR ---
ALL SCHEDULED MEDS WERE GIVEN PER ORDER, NO ASE NOTED. WILL CONTINUE TO MONITOR
--- NOTE | 2020-06-20 22:00 | NUR ---
INSERT NEW IV SITE TO THE LEFT AC [address] ANGIO WITH CONTRAST.
--- NOTE | 2020-06-20 23:09 | NUR ---
PATIENT LEFT THE UNIT, HEADING TO RADIOLOGY
--- NOTE | 2020-06-20 23:15 | NUR ---
PATIENT IS BACK ON THE UNIT. NO DISTRESS NOTED. WILL CONTINUE TO MONITOR
[2020-06-21] VITALS: BP 106/62
--- NOTE | 2020-06-21 02:32 | NUR ---
MADE ROUNDS PATIENT SLEEPING RESPIRATION EVEN UNLABORED ON 6L NC O2. NO DISTRESS NOTED. WILL CONTINUE TO MONITOR.
[2020-06-21 04:00] VITALS: BP 104/65
--- NOTE | 2020-06-21 04:20 | NUR ---
VITALS WERE TAKEN
--- NOTE | 2020-06-21 05:20 | NUR ---
MORNING CARE PROVIDED
[2020-06-21] MEDS: INSULIN LANTUS 100 UNITS/ML 10 ML VIAL SUBQ SCH ×2 (06:30→16:30)
[2020-06-21] MEDS: BLOOD GLUCOSE MONITORING 1 DEV DEV FS SCH ×4 (06:36→21:00)
--- NOTE | 2020-06-21 07:36 | NUR ---
ENDORSED PATIENT TO DAY SHIFT NURSE AT BEDSIDE FOR CONTINUITY OF CARE.
[2020-06-21 08:00] VITALS: BP 126/73
[2020-06-21] MEDS: metFORMIN 500 MG TAB PO SCH ×2 (08:00→17:00)
[2020-06-21 08:32] LABS: BASOPHILS % (AUTO) 0.1 % (0.0-2.0); EOSINOPHILS # (AUTO) 0.1 K/uL (0-0.4); EOSINOPHILS % (AUTO) 1.2 % (0.0-4.0); HEMATOCRIT 38.2 % (36-52); HEMOGLOBIN 12.4 g/dL (12.0-18.0); LYMPHOCYTES # (AUTO) 1.3 K/uL (2.0-11.5); MEAN CORPUSCULAR HEMOGLOBIN 31 pg (27-31); MEAN CORPUSCULAR HGB CONC 32 g/dL (33-37); MEAN CORPUSCULAR VOLUME 95.6 fL (80-94); MONOCYTES # (AUTO) 0.7 K/uL (0.8-1.0); MONOCYTES % (AUTO) 7.2 % (1.7-9.3); NEUTROPHILS # (AUTO) 7.1 K/uL (1.8-7.7); NEUTROPHILS % (AUTO) 77.5 % (42.2-75.2); PLATELET COUNT (AUTO) 395 K/uL (140-450); RED BLOOD CELL COUNT(AUTO) 3.99 MIL/uL (4.20-6.10); RED CELL DISTRIBUTION WIDTH 15.8 % (11.6-13.7); WHITE BLOOD COUNT (AUTO) 9.2 K/uL (4.8-10.8)
[2020-06-21 09:01] LABS: ANION GAP 11.8 (8-16); CARBON DIOXIDE 29.7 mmol/L (21-32); CREATININE 0.7 mg/dL (0.6-1.3); POTASSIUM 4.5 mmol/L (3.5-5.1)
[2020-06-21] MEDS: LOSARTAN 25 MG TAB PO SCH (10:13)
[2020-06-21] MEDS: VITAMIN D 400 IU TAB PO SCH (10:13)
[2020-06-21] MEDS: PANTOPRAZOLE 40 MG TABEC PO SCH (10:14)
[2020-06-21] MEDS: ASCORBIC ACID 500 MG TAB PO SCH (10:14)
[2020-06-21] MEDS: guaiFENesin 600 MG TABER PO SCH ×2 (10:15→22:31)
[2020-06-21] MEDS: ENOXAPARIN 80 MG/0.8 ML SYR SUBQ SCH ×2 (10:15→21:00)
--- NOTE | 2020-06-21 10:20 | NUR ---
SCHEDULED MEDICATIONS GIVEN, EDUCATION PROVIDED, PATIENT VERBALIZED UNDERSTANDING. PATIENT IS ON 6L WITH HUMIDIFIED NC. NO ACUTE DISTRESS NOTED. SAFETY MEASURES IN PLACE, WILL CONTINUE TO MONITOR.
[2020-06-21] MEDS: NACL 0.9% 1,000 ML IV SCH ×2 (11:50→19:20)
[2020-06-21 12:00] VITALS: BP 131/64
--- NOTE | 2020-06-21 12:43 | NUR ---
OFFERED WARM WATER, PER PATIENT'S REQUEST. SITTING IN BED WITH 6L NC. DENIES PAIN OR DISCOMFORT AT THIS TIME. WILL CONTINUE TO MONITOR.
--- NOTE | 2020-06-21 14:53 | NUR ---
PATIENT RESTING IN BED IN SITTING POSITION. DENIES PAIN. NOSE BLEED NOTED DUE TO THE DRY OXYGEN. HOWEVER, HUMIDIFIER IN USE, RT INFORMED. RT DEVON STATED THAT SHE WILL COME TO CHECK. WILL FOLLOW UP.
[2020-06-21 16:00] VITALS: BP 142/71
[2020-06-21] MEDS: INSULIN LISPRO SLIDING SCALE 100 UNITS/ML VIAL SUBQ PRN (17:06)
--- NOTE | 2020-06-21 19:30 | NUR ---
ENDORSED PATIENT TO GROUP CONTRACT ANALYST RN FOR CONTINUITY OF CARE. PATIENT RESTING IN BED WITH 6L OXYGEN WITH HUMIDIFIER, IN STABLE CONDITION.
[2020-06-21 20:00] VITALS: BP 117/69
[2020-06-22] VITALS: BP 136/71
[2020-06-22] MEDS: INSULIN LISPRO SLIDING SCALE 100 UNITS/ML VIAL SUBQ PRN ×3 (00:29→16:33)
[2020-06-22 04:00] VITALS: BP 132/72
[2020-06-22] MEDS: NACL 0.9% 1,000 ML IV SCH ×2 (05:20→05:37)
[2020-06-22] MEDS: INSULIN LANTUS 100 UNITS/ML 10 ML VIAL SUBQ SCH ×2 (06:30→06:55)
--- NOTE | 2020-06-22 07:30 | NUR ---
RECEIVED PATIENT REPORT FROM FREELANCE COPYWRITER NURSE. PATIENT IS ORIENTX2-4. NO SIGNS OF DISTRESS NOTED AT THIS TIME. ON 6L NC 93-96%. RESPIRATIONS ARE EVEN AND UNLABORED BILATERALLY. NO SIGNS OF PAIN. IV SITE INTACT. PLAN OF CARE DISCUSSED. SAFETY MEASURES ARE IN PLACE. CALL LIGHT WITHIN REACH. WILL CONTINUE TO MONITOR NEEDED.
[2020-06-22 07:37] LABS: BASOPHILS % (AUTO) 0.2 % (0.0-2.0); EOSINOPHILS # (AUTO) 0.1 K/uL (0-0.4); EOSINOPHILS % (AUTO) 1.2 % (0.0-4.0); HEMATOCRIT 38.3 % (36-52); HEMOGLOBIN 12.4 g/dL (12.0-18.0); LYMPHOCYTES # (AUTO) 1.6 K/uL (2.0-11.5); MEAN CORPUSCULAR HEMOGLOBIN 31 pg (27-31); MEAN CORPUSCULAR HGB CONC 33 g/dL (33-37); MEAN CORPUSCULAR VOLUME 95.2 fL (80-94); MONOCYTES # (AUTO) 0.7 K/uL (0.8-1.0); MONOCYTES % (AUTO) 8.3 % (1.7-9.3); NEUTROPHILS % (AUTO) 71.3 % (42.2-75.2); PLATELET COUNT (AUTO) 376 K/uL (140-450); RED BLOOD CELL COUNT(AUTO) 4.02 MIL/uL (4.20-6.10); RED CELL DISTRIBUTION WIDTH 15.7 % (11.6-13.7); WHITE BLOOD COUNT (AUTO) 8.4 K/uL (4.8-10.8)
[2020-06-22 08:00] VITALS: BP 126/62
[2020-06-22 08:00] LABS: ANION GAP 12.4 (8-16); CARBON DIOXIDE 28.9 mmol/L (21-32); CREATININE 0.7 mg/dL (0.6-1.3); POTASSIUM 4.3 mmol/L (3.5-5.1)
[2020-06-22] MEDS: metFORMIN 500 MG TAB PO SCH ×2 (08:00→17:00)
[2020-06-22] MEDS: BLOOD GLUCOSE MONITORING 1 DEV DEV FS SCH ×4 (08:07→21:00)
[2020-06-22] MEDS: VITAMIN D 400 IU TAB PO SCH (08:29)
[2020-06-22] MEDS: LOSARTAN 25 MG TAB PO SCH (08:32)
[2020-06-22] MEDS: guaiFENesin 600 MG TABER PO SCH ×2 (08:32→20:10)
[2020-06-22] MEDS: ASCORBIC ACID 500 MG TAB PO SCH (08:32)
[2020-06-22] MEDS: PANTOPRAZOLE 40 MG TABEC PO SCH (08:33)
[2020-06-22] MEDS: ENOXAPARIN 80 MG/0.8 ML SYR SUBQ SCH ×2 (08:34→20:13)
--- NOTE | 2020-06-22 09:00 | NUR ---
MEDICATIONS DUE GIVEN TO PATIENT. NO SIGNS OF DISTRESS NOTED. BREATHING EVEN AND UNLABORED UNILATERALLY AT THIS TIME. WILL CONTINUE TO MONITOR NEEDED.
--- NOTE | 2020-06-22 11:40 | NUR ---
BLOOD SUGAR 194 MG/DL INSULIN COVERAGE GIVEN
[2020-06-22 12:00] VITALS: BP 130/66
--- NOTE | 2020-06-22 14:00 | NUR ---
PATIENT WEAN FROM OXYGEN FROM 6LPM TO 4LPM VIA NC PER DOCTORS ORDER.
--- NOTE | 2020-06-22 14:05 | NUR ---
06/22/20 RD INITIAL ASSESSMENT COMPLETED PLEASE REFER TO NUTRITION ASSESSMENT UNDER CARE ACTIVITY FOR ESTIMATED NUTRITIONAL NEEDS. 1. CONTINUE GROUND CCHO 60GM DIET TOLERATED 2. CONTINUE GLUCERNA TID 3. ENCOURAGE PO INTAKE >50% 4. RD TO FOLLOW-UP 2-3 DAYS, HIGH RISK RENATO JIMÉNEZ, RD
[2020-06-22 16:00] VITALS: BP 124/78
--- NOTE | 2020-06-22 17:12 | NUR ---
PATIENT METFORMIN PUT ON HOLD PATIENT IS FOR CT ANGIO PER NIGHT NURSE
--- NOTE | 2020-06-22 19:07 | NUR ---
ENDORSED TO ANESTHESIOLOGIST PHYSICIAN NURSE FOR CONTINUITY OF CARE. PATIENT NOTED TO BE STABLE. NO DISTRESS NOTED. NO VERBALIZATION OF PAIN.
--- NOTE | 2020-06-22 19:15 | NUR ---
RECEIVED ENDORSEMENT AT BEDSIDE FOR CONTINUITY OF CARE, PT IN STABLE CONDITION.
[2020-06-22 20:00] VITALS: BP 100/46
[2020-06-22] MEDS: LORazepam 2 MG/ML VIAL IM/IVP PRN (20:15)
--- NOTE | 2020-06-22 20:15 | NUR ---
PT SITTING IN BED HOB UP 90%. PT HAS N/C AT 8 LITERS WITH HUMIDIFIED AIR. PT C/O OF FEELING ANXIOUS 02 WAS TAKEN IT WAS 78, 02 BUMPED UP TO 15 LITERS AND RT CALLED. PT PLACED IN PRONE POSITION IN BED AND BED PLACED IN [place] POSITION. 02 CLIMBED UP TO MID TO HIGH 80'S WILL RECHECK WITH PT LATER.
--- NOTE | 2020-06-22 21:00 | NUR ---
PT WAS GIVEN ATIVAN FOR ANXIETY FINGERSTICK IS 147, NO HUMALOG COVERAGE NEEDED. PT ALSO GIVEN ORDERED MUCINEX AND LOVENOX. METFORMIN HELD DUE TO PENDING PROCEDURE ORDERED W /CONTRAST. PT GIVEN EDUCATION REGARDING MEDICATION AT BEDSIDE, PT VERBALIZED UNDERSTANDING. PT HAS LAC INTACT AND RUNNING N/S AT 100MLS/HR. NEW BAG WAS REPLACED. PT ALSO RECEIVED NASAL SWAB FOR JENNIFER AND PCR FOR CORONAVIRUS.
--- NOTE | 2020-06-22 23:00 | NUR ---
PT ASSISTED WITH REPOSITION IN BED. PT RESTING WITH EYES CLOSED IN BED 02 IS 100% ON 15 LITERS NON REBREATHER. ALL ORDERED PRECAUTIONS IN PLACE.
--- NOTE | 2020-06-23 00:30 | NUR ---
PT IN BED SLEEPING NO S/S OF PAIN OR DISTRESS NOTED, P[T REFUSED V/S AT THIS TIME.
[2020-06-23] MEDS: NACL 0.9% 1,000 ML IV SCH ×3 (01:20→21:20)
--- NOTE | 2020-06-23 04:15 | NUR ---
PT IN BED 02 RUNNING ORDERED, PT REFUSED V/S AT THIS TIME.
--- NOTE | 2020-06-23 06:00 | NUR ---
FINGERSTICK IS 116, PT IN BED NO S/S OF PAIN OR DISTRESS NOTED, CONTINUES ON CURRENT NON REBREATHER , 02 IS 945 NO S/S OF PAIN OR DISTRESS NOTED. PT GIVEN ORDERED LANTUS.
[2020-06-23 06:22] LABS: BASOPHILS % (AUTO) 0.2 % (0.0-2.0); EOSINOPHILS # (AUTO) 0.1 K/uL (0-0.4); EOSINOPHILS % (AUTO) 0.9 % (0.0-4.0); HEMATOCRIT 35.6 % (36-52); HEMOGLOBIN 11.7 g/dL (12.0-18.0); LYMPHOCYTES # (AUTO) 1.4 K/uL (2.0-11.5); LYMPHOCYTES % (AUTO) 12.2 % (20.5-51.1); MEAN CORPUSCULAR HEMOGLOBIN 30 pg (27-31); MEAN CORPUSCULAR HGB CONC 33 g/dL (33-37); MEAN CORPUSCULAR VOLUME 92.9 fL (80-94); MONOCYTES # (AUTO) 0.7 K/uL (0.8-1.0); MONOCYTES % (AUTO) 5.7 % (1.7-9.3); NEUTROPHILS # (AUTO) 9.5 K/uL (1.8-7.7); PLATELET COUNT (AUTO) 343 K/uL (140-450); RED BLOOD CELL COUNT(AUTO) 3.83 MIL/uL (4.20-6.10); RED CELL DISTRIBUTION WIDTH 15.1 % (11.6-13.7); WHITE BLOOD COUNT (AUTO) 11.7 K/uL (4.8-10.8)
[2020-06-23] MEDS: INSULIN LANTUS 100 UNITS/ML 10 ML VIAL SUBQ SCH ×2 (06:44→16:30)
[2020-06-23] MEDS: BLOOD GLUCOSE MONITORING 1 DEV DEV FS SCH ×4 (06:46→21:00)
[2020-06-23 06:53] LABS: ANION GAP 10.5 (8-16); CREATININE 0.6 mg/dL (0.6-1.3); POTASSIUM 3.5 mmol/L (3.5-5.1)
[2020-06-23 08:00] VITALS: BP 130/43
[2020-06-23] MEDS: metFORMIN 500 MG TAB PO SCH ×2 (08:00→17:00)
[2020-06-23] MEDS: guaiFENesin 600 MG TABER PO SCH ×2 (08:47→20:27)
[2020-06-23] MEDS: LOSARTAN 25 MG TAB PO SCH (08:47)
[2020-06-23] MEDS: VITAMIN D 400 IU TAB PO SCH (08:47)
[2020-06-23] MEDS: ASCORBIC ACID 500 MG TAB PO SCH (08:48)
[2020-06-23] MEDS: PANTOPRAZOLE 40 MG TABEC PO SCH (08:48)
[2020-06-23] MEDS: ENOXAPARIN 80 MG/0.8 ML SYR SUBQ SCH ×2 (08:49→20:25)
--- NOTE | 2020-06-23 08:50 | NUR ---
SCHEDULED MORNING MEDICATIONS GIVEN. EDUCATION PROVIDED. PATIENT DENIES SOB ON 15L NC WITH HUMIDIFIER. IV SITE LEFT AC 20 G INFUSING NS @ 100ML. SAFETY MEASURES IN PLACE, CALL LIGHT WITHIN REACH. WILL CONTINUE TO MONITOR.
--- NOTE | 2020-06-23 11:05 | NUR ---
PATIENT RESTING IN BED WITH SEMI FERREIRA'S POSITION. NO RESPIRATORY DISTRESS NOTED WITH 15L NC WITH HUMIDIFIER. SAFETY MEASURES IN PLACE, WILL CONTINUE TO MONITOR.
[2020-06-23 12:00] VITALS: BP 130/74
[2020-06-23] MEDS: INSULIN LISPRO SLIDING SCALE 100 UNITS/ML VIAL SUBQ PRN ×3 (12:27→21:52)
--- NOTE | 2020-06-23 13:40 | NUR ---
PATIENT'S O2 SAT 97% WITH 10L NC WITH HUMIDIFIER. WEAN OFF THE O2 TO 8L, O2 SAT 93-95%. TOLERATED WELL. WILL CONTINUE TO MONITOR.
--- NOTE | 2020-06-23 14:45 | NUR ---
PATIENT'S O2 SAT 98% WITH 7L NC WITH HUMIDIFIER. WEAN OFF THE O2 TO 5L, 02 SAT 94-95%. HR 79. ENCOURAGED PATIENT TO TAKE DEEP BREATHE. PATIENT STATED THAT HE FEELS GOOD. WILL CONTINUE TO MONITOR.
[2020-06-23 16:00] VITALS: BP 105/73
--- NOTE | 2020-06-23 17:05 | NUR ---
2 UNITS OF HUMALOG GIVEN FOR BS LEVEL 163, EDUCATION PROVIDED. PATIENT TOLERATED 5L NC WITH HUMIDIFIER WELL, O2 SAT 94-96%. DENIES SOB. SAFETY MEASURES IN PLACE. CALL LIGHT WITHIN REACH, WILL CONTINUE TO MONITOR.
--- NOTE | 2020-06-23 19:15 | NUR ---
ENDORSED PATIENT TO CHANNEL LIP WETTER RN FOR CONTINUITY OF CARE. PATIENT IN STABLE CONDITION WITH 5L NC WITH HUMIDIFIER.
--- NOTE | 2020-06-23 19:30 | NUR ---
RECEIVED REPORT FROM RICARDO KNOTT DAYSHIFT NURSE AT BEDSIDE FOR CONTINUITY OF CARE, PT IN STABLE CONDITION.
[2020-06-23 20:00] VITALS: BP 108/60
--- NOTE | 2020-06-23 20:00 | NUR ---
PT IN BED AOX4 HOB UP 20%, PT CONTINUES ON 4 LITERS 02 VIA N/C. HE HAS A 20G ON LEFT AC RUNNING NORMAL SALINE AT 100MLS/HR. V/S FOLLOWS: T 97.7 P 79 R 17 B/P 108/60 02 95% ON 5 LITERS VIA N/C. PT FINGERSTICK IS 189, WILL BRING HUMALOG COVERAGE. ALL ORDERED PRECAUTIONS IN PLACE.
[2020-06-23] MEDS: methylPREDNISolone SS 40 MG/ML VIAL IVP SCH (20:26)
--- NOTE | 2020-06-23 21:00 | NUR ---
PT GIVEN ORDERED MEDS OF LOVENOX, SOLUMEDROL, MUCINEX. EDUCATION REGARDING MEDICATIONS PROVIDED AT BEDSIDE, PT VERBALIZED UNDERSTANDING. PT GIVEN 2 UNITS OF HUMALOG COVERAGE PER S/S, ALL ORDERED PRECAUTIONS IN PLACE.
[2020-06-24] VITALS: BP 92/51
--- NOTE | 2020-06-24 | NUR ---
PT IN BED NO S/S OF PAIN OR DISTRESS NOTED, HE CONTINUES ON 5 LITERS VIA N/C. FLUIDS RUNNING ORDERED. V/S FOLLOWS: T 97.6 P 67 R 17 B/P 92/51 02 94% ON 5 LITERS VIA N/C. ALL REQUESTED NEEDS ATTENDED BY STAFF.
--- NOTE | 2020-06-24 00:55 | NUR ---
PT AWAKE IN BED HOB UP 20% PT CONTINUES ON 4 LITERS N/C. NO S/S OF PAIN OR DISTRESS NOTED. PT GIVEN REQUESTED SNACK. ALL ORDRED PRECAUTIONS IN PLACE. PT HAS LAC 20 G INTACT AND RUNNING N/S AT 100MLS/HR.
[2020-06-24 04:00] VITALS: BP 105/58
[2020-06-24] MEDS: INSULIN LISPRO SLIDING SCALE 100 UNITS/ML VIAL SUBQ PRN ×5 (06:10→21:04)
[2020-06-24] MEDS: INSULIN LANTUS 100 UNITS/ML 10 ML VIAL SUBQ SCH ×2 (06:31→16:30)
[2020-06-24] MEDS: BLOOD GLUCOSE MONITORING 1 DEV DEV FS SCH ×4 (06:34→21:04)
[2020-06-24 06:40] LABS: BASOPHILS % (AUTO) 0.1 % (0.0-2.0); HEMATOCRIT 37.8 % (36-52); HEMOGLOBIN 12.3 g/dL (12.0-18.0); LYMPHOCYTES % (AUTO) 8.7 % (20.5-51.1); MEAN CORPUSCULAR HEMOGLOBIN 31 pg (27-31); MEAN CORPUSCULAR HGB CONC 33 g/dL (33-37); MEAN CORPUSCULAR VOLUME 94.7 fL (80-94); MONOCYTES # (AUTO) 0.5 K/uL (0.8-1.0); MONOCYTES % (AUTO) 4.8 % (1.7-9.3); NEUTROPHILS # (AUTO) 9.8 K/uL (1.8-7.7); NEUTROPHILS % (AUTO) 86.4 % (42.2-75.2); PLATELET COUNT (AUTO) 315 K/uL (140-450); RED BLOOD CELL COUNT(AUTO) 3.99 MIL/uL (4.20-6.10); RED CELL DISTRIBUTION WIDTH 15.6 % (11.6-13.7); WHITE BLOOD COUNT (AUTO) 11.3 K/uL (4.8-10.8)
--- NOTE | 2020-06-24 06:54 | NUR ---
PT GIVEN 2 UNITS OF HUMALOG COVERAGE FOR FINGERSTICK OF 204. PT ALSO GIVEN SCHEDULED LANTUS.
[2020-06-24] MEDS: NACL 0.9% 1,000 ML IV SCH ×3 (07:39→20:51)
[2020-06-24 08:00] VITALS: BP 117/65
[2020-06-24 08:35] LABS: ALBUMIN 2.4 g/dL (3.4-5.0); ANION GAP 12.4 (8-16); CARBON DIOXIDE 26.6 mmol/L (21-32); CREATININE 0.7 mg/dL (0.6-1.3); MAGNESIUM 2.3 mg/dL (1.8-2.4); PHOSPHORUS 2.7 mg/dL (2.5-4.9); TOTAL BILIRUBIN 0.4 mg/dL (0.0-1.0)
[2020-06-24] MEDS: methylPREDNISolone SS 40 MG/ML VIAL IVP SCH ×2 (08:42→20:48)
[2020-06-24] MEDS: PANTOPRAZOLE 40 MG TABEC PO SCH (08:42)
[2020-06-24] MEDS: VITAMIN D 400 IU TAB PO SCH (08:42)
[2020-06-24] MEDS: metFORMIN 500 MG TAB PO SCH ×2 (08:43→17:57)
[2020-06-24] MEDS: guaiFENesin 600 MG TABER PO SCH ×2 (08:43→20:48)
[2020-06-24] MEDS: LOSARTAN 25 MG TAB PO SCH (08:43)
[2020-06-24] MEDS: ASCORBIC ACID 500 MG TAB PO SCH (08:43)
[2020-06-24] MEDS: ENOXAPARIN 80 MG/0.8 ML SYR SUBQ SCH (08:45)
--- NOTE | 2020-06-24 08:45 | NUR ---
SCHEDULED MEDICATIONS GIVEN, EDUCATION PROVIDED. PATIENT DENIES PAIN OR DISCOMFORT. PATIENT STATED THAT HE SLEPT WELL LAST NIGHT. PATIENT TOLERATED 4L O2 WITH HUMIDIFIER. SAFETY MEASURES IN PLACE, WILL CONTINUE TO MONITOR.
--- NOTE | 2020-06-24 10:18 | NUR ---
PATIENT RESTING IN BED WITH LEFT LATERAL POSITION. DENIES PAIN OR DISCOMFORT. TOLERATED 4L NC WITH HUMIDIFIER. DENIES SOB OR TROUBLE BREATHING. NO RESPIRATORY DISTRESS NOTED. CALL LIGHT WITHIN REACH. WILL CONTINUE TO MONITOR.
--- NOTE | 2020-06-24 11:38 | NUR ---
4 UNITS OF HUMALOG GIVEN FOR BS LEVEL 201, EDUCATION PROVIDED, PATIENT TOLERATED WELL, NO ACUTE DISTRESS NOTED, WILL CONTINUE TO MONITOR.
[2020-06-24 12:00] VITALS: BP 139/64
--- NOTE | 2020-06-24 14:05 | NUR ---
GAVE PATIENT BED BATH. 1 REGULAR BM NOTED. PATIENT STATED THAT HE FEEL FRESH AFTER THE BED BATH. PATIENT TOLERATED WELL. WILL CONTINUE TO MONITOR.
[2020-06-24 16:00] VITALS: BP 157/76
--- NOTE | 2020-06-24 16:41 | NUR ---
2 UNITS OF HUMALOG GIVEN FOR BS LEVEL 181, PATENT DENIES SOB ON 4L NC WITH HUMIDIFIER, WILL CONTINUE TO MONITOR.
--- NOTE | 2020-06-24 17:10 | NUR ---
INFORMED PATIENT THAT HE IS GOING TO BE DISCHARGED. WITH 4L OXYGEN. PATIENT ALREADY HAD O2 TANK AND CONCENTRATOR AT HOME FROM PREVIOUS HOSPITAL DISCHARGE. PATIENT STATED THAT HE WILL CALL HIS DAUGHTER SHEILA.
--- NOTE | 2020-06-24 17:15 | NUR ---
CALLED PATIENT'S DAUGHTER SHEILA [phone] FOR 3 TIMES. WITH NO ANSWER, LEFT VOICE MESSAGE INFORM HER THAT PATIENT IS GOING TO BE DISCHARGED. WILL FOLLOW UP.
--- NOTE | 2020-06-24 17:18 | NUR ---
RECEIVED A CALL BACK FROM PATIENT' DAUGHTER SHEILA. PER SHEILA. PT LIVES IN TWO STORY APARTMENT, AND IF PATIENT NOT STEADY, HE CANNOT EVEN WALK TO THE RESTROOM. PATIENT DOES NOT HAVE BEDSIDE COMMODE/WALKER. PATIENT WAS NOT ABLE TO CATCH HIS BREATH WHEN HE WALKED TO THE RESTROOM PRIOR THIS ADMISSION. INFORMED DR. MULLINS TO GIVE A CALL TO SHEILA. MADE AWARE. WILL FOLLOW UP.
[2020-06-24] MEDS: ACETAMINOPHEN 325 MG TAB PO PRN (17:58)
--- NOTE | 2020-06-24 17:58 | NUR ---
TYLENOL GIVEN FOR ABD PAIN. PATIENT STATED THAT HE HAD DIARRHEA. HOWEVER, CHANGED THE DIAPER, WITH REGULAR BOWEL MOVEMENT. OFFERED WARM WATER, MAYBE ABD PAIN CAUSED BY PASSING GAS. WILL CONTINUE TO MONITOR.
--- NOTE | 2020-06-24 18:41 | NUR ---
PER DR. MULLINS. LET PATIENT STAY. CHAIR MAKER TO FOLLOW UP TOMORROW.
--- NOTE | 2020-06-24 19:21 | NUR ---
ENDORSED PATIENT TO GEOSPATIAL INTELLIGENCE ANALYST RN FOR CONTINUITY OF CARE, PATIENT IN STABLE CONDITION WITH 4L NC WITH HUMIDIFIER.
--- NOTE | 2020-06-24 19:22 | NUR ---
RECEIVED BEDSIDE ENDORSEMENT FROM AM SHIFT RN. PT IS AOX3, ON 4L NC W/ HUMIDIFIER, O2 SAT WNL, NO C/O PAIN, SAFETY MEASURES IN PLACE, PLAN OF CARE DISCUSSED, CALL LIGHT WITHIN REACH.
[2020-06-24 20:00] VITALS: BP 134/65
--- NOTE | 2020-06-24 21:04 | NUR ---
BS 162, PT REFUSED HUMALOG 2 UNITS, EXPLAINED RISKS AND BENEFITS, STILL REFUSED, OTHER DUE MED GIVEN ORDERED, TOLERATED WELL, CALL LIGHT WITHIN REACH.
[2020-06-25] VITALS: BP 147/79
[2020-06-25 04:00] VITALS: BP 134/75
[2020-06-25] MEDS: INSULIN LANTUS 100 UNITS/ML 10 ML VIAL SUBQ SCH ×2 (06:28→16:30)
[2020-06-25] MEDS: INSULIN LISPRO SLIDING SCALE 100 UNITS/ML VIAL SUBQ PRN ×3 (06:29→16:58)
[2020-06-25] MEDS: BLOOD GLUCOSE MONITORING 1 DEV DEV FS SCH ×4 (06:35→21:14)
--- NOTE | 2020-06-25 07:15 | NUR ---
PT STABLE THE WHOLE SHIFT, NO ACUTE CHANGES, ENDORSED TO AM SHIFT RN.
[2020-06-25 07:28] LABS: BASOPHILS % (AUTO) 0.1 % (0.0-2.0); HEMATOCRIT 36.8 % (36-52); LYMPHOCYTES # (AUTO) 1.2 K/uL (2.0-11.5); LYMPHOCYTES % (AUTO) 10.5 % (20.5-51.1); MEAN CORPUSCULAR HEMOGLOBIN 31 pg (27-31); MEAN CORPUSCULAR HGB CONC 32 g/dL (33-37); MONOCYTES # (AUTO) 0.4 K/uL (0.8-1.0); MONOCYTES % (AUTO) 3.5 % (1.7-9.3); NEUTROPHILS # (AUTO) 10.1 K/uL (1.8-7.7); NEUTROPHILS % (AUTO) 85.9 % (42.2-75.2); PLATELET COUNT (AUTO) 291 K/uL (140-450); RED BLOOD CELL COUNT(AUTO) 3.88 MIL/uL (4.20-6.10); RED CELL DISTRIBUTION WIDTH 15.9 % (11.6-13.7); WHITE BLOOD COUNT (AUTO) 11.8 K/uL (4.8-10.8)
[2020-06-25 08:00] VITALS: BP 141/73
[2020-06-25 08:21] LABS: ANION GAP 12.1 (8-16); CARBON DIOXIDE 29.6 mmol/L (21-32); CREATININE 0.7 mg/dL (0.6-1.3); POTASSIUM 4.7 mmol/L (3.5-5.1)
--- NOTE | 2020-06-25 09:08 | NUR ---
PT CHECKED ON THE PATIENT WAS ABOUT TO START THE EXERCISE. PATIENT STATED DESATURATING. SN CHECKED ON THE PATIENT. INCREASED O2 TO 15L. TRIED TO CALM THE PATIENT DOWN AND TRIED THE PATIENT TO FOCUS ON HIS BREATHING.
--- NOTE | 2020-06-25 09:10 | NUR ---
PATIENT'S O2 SAT REMAINS AT 82-83% WITH 15L, RT CALLED. MADELEINE WILL GOING TO CHECK THE PATENT.
--- NOTE | 2020-06-25 09:17 | NUR ---
PATIENT STATED THAT HE IS EMOTIONAL SADNESS FOR THE OF ROOMMATE 105A. HE IS LITTLE ANXIOUS. REQUEST ATIVAN. WILL ADMINISTER ATIVAN.
[2020-06-25] MEDS: methylPREDNISolone SS 40 MG/ML VIAL IVP SCH ×2 (09:23→21:20)
[2020-06-25] MEDS: LORazepam 2 MG/ML VIAL IM/IVP PRN (09:23)
--- NOTE | 2020-06-25 09:23 | NUR ---
ATIVAN GIVEN VIA IVP, EDUCATION PROVIDED. EXPLAINED TO THE PATIENT THAT HE NEEDS TO RELAX AND CALM DOWN. CONTINUE WITH 15L O2.
[2020-06-25] MEDS: ASCORBIC ACID 500 MG TAB PO SCH (09:24)
[2020-06-25] MEDS: LOSARTAN 25 MG TAB PO SCH (09:24)
[2020-06-25] MEDS: PANTOPRAZOLE 40 MG TABEC PO SCH (09:24)
[2020-06-25] MEDS: metFORMIN 500 MG TAB PO SCH ×2 (09:24→17:17)
[2020-06-25] MEDS: VITAMIN D 400 IU TAB PO SCH (09:25)
[2020-06-25] MEDS: guaiFENesin 600 MG TABER PO SCH ×2 (09:26→21:20)
[2020-06-25] MEDS: ENOXAPARIN 80 MG/0.8 ML SYR SUBQ SCH (09:27)
--- NOTE | 2020-06-25 10:00 | NUR ---
PATIENT'S O2 SAT 96% WITH 15L NC WITH HUMIDIFIER. DECREASED TO 13L. O2 SAT 95%, HR 85. ENCOURAGED PATIENT TO TAKE DEEP BREATH AND RELAX. PATIENT KEEPS SAYING PATIENT 105A'S NAME. PT IS STILL SAD ABOUT 105A'S .
--- NOTE | 2020-06-25 10:26 | NUR ---
PATIENT'S O2 SAT 89% WITH 13L OXIMIZER. INCREASED O2 BACK TO 15L. O2 SAT 90-91%. PATIENT DENIES SOB. ENCOURAGED PATIENT TO TAKE DEEP BREATH. VERBALIZED UNDERSTANDING. WILL CONTINUE TO MONITOR.
--- NOTE | 2020-06-25 11:12 | NUR ---
PATIENT'S O2 SAT 91% WITH 15L NC WITH HUMIDIFIER IN SITTING POSITION. PER PT APARNA, PATIENT IS VERY WEAK, UNABLE TO STAND UP, AND O2 DESATURATE WHEN MOVES. WILL INFORM
[2020-06-25] MEDS: NACL 0.9% 1,000 ML IV SCH ×2 (11:31→23:53)
[2020-06-25 12:00] VITALS: BP 130/66
--- NOTE | 2020-06-25 14:45 | NUR ---
PATIENT SITTING IN BED, O2 SAT 93%-97% WITH 13L NC WITH HUMIDIFIER. HR 90. PATIENT REMAIN CALM. NO ACUTE DISTRESS NOTED, WILL CONTINUE TO MONITOR.
[2020-06-25 16:00] VITALS: BP 117/73
--- NOTE | 2020-06-25 16:58 | NUR ---
06/25/20 RD FOLLOW UP COMPLETED PLEASE REFER TO NUTRITION ASSESSMENT UNDER CARE ACTIVITY FOR ESTIMATED NUTRITIONAL NEEDS. 1. CONTINUE GROUND CCHO 60GM DIET TOLERATED 3. ENCOURAGE PO INTAKE >50% 4. RD TO FOLLOW-UP 2-3 DAYS, HIGH RISK TERRY LY, RD
--- NOTE | 2020-06-25 17:45 | NUR ---
PATIENT ASLEEP COMFORTABLY. VISIBLE CHEST RISE AND FALLS. O2 SAT 98% WITH 8L NC WITH HUMIDIFIER. DECREASED TO 6L NC. O2 REMAIN 98%. WILL CONTINUE TO MONITOR.
--- NOTE | 2020-06-25 18:07 | NUR ---
PATIENT'S O2 SAT 98%, HR 69. RESPIRATORY EVEN, UNLABORED. STILL ASLEEP. DECREASED OXYGEN TO 5L. O2 SAT 96%. WILL CONTINUE TO MONITOR.
--- NOTE | 2020-06-25 19:20 | NUR ---
ENDORSED PATIENT TO FREIGHT RATE CLERK RN FOR CONTINUITY OF CARE. PATIENT IN STABLE CONDITION WITH 5L NC WITH HUMIDIFIER, O2 SAT 97%. SITTING IN BED. DENIES DISCOMFORT.
[2020-06-25 20:00] VITALS: BP 117/71
--- NOTE | 2020-06-25 20:04 | NUR ---
RECEIVED REPORT FROM RICARDO/RN, PT A&O X4, VERBAL, NEEDS MOD. ASSIST, NEEDS ATTENTION, VERY NEEDY, ON O2 @5LPM/NC, CONTINENT, CARE ASSUMED.
[2020-06-26] VITALS: BP_SYST 105; BP_SYST 163; BP_DIAS 61; BP_DIAS 76
--- NOTE | 2020-06-26 02:54 | NUR ---
PT SEEN AND ASSESSED. PT ON 5L HIGH FLOW BUBBLE HUMIDIFIER WITH SPO2 97%. TITRATED TO 4L. SPO2 94%. PT IN NO RESPIRATORY DISTRESS AT THIS TIME. WILL CONTINUE TO MONITOR PT.
[2020-06-26 04:00] VITALS: BP 100/62
[2020-06-26] MEDS: BLOOD GLUCOSE MONITORING 1 DEV DEV FS SCH ×4 (05:51→21:47)
[2020-06-26] MEDS: INSULIN LISPRO SLIDING SCALE 100 UNITS/ML VIAL SUBQ PRN ×2 (05:56→12:19)
[2020-06-26] MEDS: INSULIN LANTUS 100 UNITS/ML 10 ML VIAL SUBQ SCH ×2 (05:57→16:50)
--- NOTE | 2020-06-26 07:22 | NUR ---
GAVE REPORT TO SANIA/RN
--- NOTE | 2020-06-26 07:23 | NUR ---
RECEIVED PATIENT FROM NIGHT NURSE. PATIENT IN BED AWAKE AND ALERT. RESP EVEN AND UNLABORED ON 5LNC. NO NOTED ACUTE S/S DISTRESS AT THIS TIME. LAC 20G INFUSING NS 100ML/HR. PATIENT SLEPT WELL THROUGH THE NIGHT. PLAN OF CARE DISCUSSED, PATIENT VERBALIZED UNDERSTANDING. HOB ELEVATED. CALL LIGHT WITHIN REACH. WILL CONTINUE TO MONITOR.
[2020-06-26 08:00] VITALS: BP 116/67
[2020-06-26] MEDS: ENOXAPARIN 80 MG/0.8 ML SYR SUBQ SCH (08:57)
[2020-06-26] MEDS: methylPREDNISolone SS 40 MG/ML VIAL IVP SCH ×2 (08:58→21:50)
[2020-06-26] MEDS: ASCORBIC ACID 500 MG TAB PO SCH (08:58)
[2020-06-26] MEDS: guaiFENesin 600 MG TABER PO SCH ×2 (08:58→21:49)
[2020-06-26] MEDS: PANTOPRAZOLE 40 MG TABEC PO SCH (08:58)
[2020-06-26] MEDS: LOSARTAN 25 MG TAB PO SCH (08:59)
[2020-06-26] MEDS: metFORMIN 500 MG TAB PO SCH ×2 (08:59→16:46)
[2020-06-26] MEDS: VITAMIN D 400 IU TAB PO SCH (08:59)
[2020-06-26 09:20] LABS: BASOPHILS % (AUTO) 0.1 % (0.0-2.0); HEMATOCRIT 38.7 % (36-52); HEMOGLOBIN 12.7 g/dL (12.0-18.0); LYMPHOCYTES # (AUTO) 1.1 K/uL (2.0-11.5); LYMPHOCYTES % (AUTO) 8.4 % (20.5-51.1); MEAN CORPUSCULAR HEMOGLOBIN 31 pg (27-31); MEAN CORPUSCULAR HGB CONC 33 g/dL (33-37); MEAN CORPUSCULAR VOLUME 93.9 fL (80-94); MONOCYTES # (AUTO) 0.4 K/uL (0.8-1.0); MONOCYTES % (AUTO) 3.4 % (1.7-9.3); NEUTROPHILS # (AUTO) 11.4 K/uL (1.8-7.7); NEUTROPHILS % (AUTO) 88.1 % (42.2-75.2); PLATELET COUNT (AUTO) 301 K/uL (140-450); RED BLOOD CELL COUNT(AUTO) 4.12 MIL/uL (4.20-6.10); RED CELL DISTRIBUTION WIDTH 15.9 % (11.6-13.7); WHITE BLOOD COUNT (AUTO) 12.9 K/uL (4.8-10.8)
[2020-06-26] MEDS: NACL 0.9% 1,000 ML IV SCH ×3 (09:28→21:55)
--- NOTE | 2020-06-26 09:30 | NUR ---
PATIENT SITTING UP IN BED EATING BREAKFAST. RESP EVEN AND UNLABORED ON 4L NC, O2 SAT 93%. NO NOTED DISTRESS AT THIS TIME. MORNING ROUTINE MEDICATIONS GIVEN. PATIENT TOLERATED WELL. LAC 20G INFUSING NS 100ML/HR. PATIENT ABLE TO MAKE NEEDS KNOWN AND FOLLOW COMMANDS. SAFETY MEASURES IN PLACE. CALL LIGHT WITHIN REACH. WILL CONTINUE TO MONITOR.
[2020-06-26 10:08] LABS: ALBUMIN 2.4 g/dL (3.4-5.0); ANION GAP 8.4 (8-16); CARBON DIOXIDE 32.2 mmol/L (21-32); CREATININE 0.7 mg/dL (0.6-1.3); MAGNESIUM 2.3 mg/dL (1.8-2.4); PHOSPHORUS 3.5 mg/dL (2.5-4.9); POTASSIUM 4.6 mmol/L (3.5-5.1); TOTAL BILIRUBIN 0.4 mg/dL (0.0-1.0)
--- NOTE | 2020-06-26 12:21 | NUR ---
BLOOD SUGAR 201, INSULIN COVERAGE PROVIDED PER SLIDING SCALE. PATIENT SITTING UP IN BED WATCHING TV. NO NOTED DISTRESS AT THIS TIME. CALL LIGHT WITHIN REACH. WILL CONTINUE TO MONITOR.
--- NOTE | 2020-06-26 14:13 | NUR ---
PATIENT IN BED SLEEPING, CHEST NOTED RISING. NO ACUTE S/S DISTRESS. CALL LIGHT WITHIN REACH. WILL CONTINUE TO MONITOR.
[2020-06-26] MEDS ORDERED: LOPERAMIDE 2 MG CAP PO PRN (15:10)
[2020-06-26 16:00] VITALS: BP 104/66
--- NOTE | 2020-06-26 16:50 | NUR ---
BLOOD GLUCOSE 143. NO INSULIN COVERAGE. PATIENT SITTING UP IN BED WATCHING TV. NO NOTED DISTRESS. CALL LIGHT WITHIN REACH. WILL CONTINUE TO MONITOR.
--- NOTE | 2020-06-26 18:25 | NUR ---
PATIENT IN BED SLEEPING, CHEST NOTED RISING. NO NOTED ACUTE S/S DISTRESS. CALL LIGHT WITHIN REACH. WILL CONTINUE TO MONITOR.
--- NOTE | 2020-06-26 19:05 | NUR ---
ENDORSED PATIENT TO NIGHT NURSE. PATIENT IN STABLE CONDITION.
[2020-06-26 20:00] VITALS: BP 121/63
[2020-06-27 04:00] VITALS: BP 116/71
[2020-06-27 06:38] LABS: BASOPHILS % (AUTO) 0.1 % (0.0-2.0); HEMATOCRIT 40.7 % (36-52); HEMOGLOBIN 13.3 g/dL (12.0-18.0); LYMPHOCYTES % (AUTO) 7.7 % (20.5-51.1); MEAN CORPUSCULAR HEMOGLOBIN 31 pg (27-31); MEAN CORPUSCULAR HGB CONC 33 g/dL (33-37); MEAN CORPUSCULAR VOLUME 94.6 fL (80-94); MONOCYTES # (AUTO) 0.4 K/uL (0.8-1.0); MONOCYTES % (AUTO) 2.9 % (1.7-9.3); NEUTROPHILS # (AUTO) 11.1 K/uL (1.8-7.7); NEUTROPHILS % (AUTO) 89.3 % (42.2-75.2); PLATELET COUNT (AUTO) 286 K/uL (140-450); RED BLOOD CELL COUNT(AUTO) 4.31 MIL/uL (4.20-6.10); RED CELL DISTRIBUTION WIDTH 15.9 % (11.6-13.7); WHITE BLOOD COUNT (AUTO) 12.4 K/uL (4.8-10.8)
[2020-06-27] MEDS: BLOOD GLUCOSE MONITORING 1 DEV DEV FS SCH ×3 (06:41→17:15)
[2020-06-27] MEDS: INSULIN LANTUS 100 UNITS/ML 10 ML VIAL SUBQ SCH ×2 (06:43→17:17)
--- NOTE | 2020-06-27 07:42 | NUR ---
GAVE HANDOFF REPORT
[2020-06-27 08:01] LABS: ANION GAP 9.6 (8-16); CREATININE 0.6 mg/dL (0.6-1.3); POTASSIUM 4.6 mmol/L (3.5-5.1)
[2020-06-27] MEDS: methylPREDNISolone SS 40 MG/ML VIAL IVP SCH (09:00)
[2020-06-27] MEDS: metFORMIN 500 MG TAB PO SCH ×2 (09:27→17:15)
[2020-06-27] MEDS: LOSARTAN 25 MG TAB PO SCH (09:29)
[2020-06-27] MEDS: ASCORBIC ACID 500 MG TAB PO SCH (09:29)
[2020-06-27] MEDS: guaiFENesin 600 MG TABER PO SCH (09:29)
[2020-06-27] MEDS: VITAMIN D 400 IU TAB PO SCH (09:29)
[2020-06-27] MEDS: PANTOPRAZOLE 40 MG TABEC PO SCH (09:29)
[2020-06-27] MEDS: ENOXAPARIN 80 MG/0.8 ML SYR SUBQ SCH (09:30)
[2020-06-27 09:57] VITALS: BP 129/70
[2020-06-27] MEDS: INSULIN LISPRO SLIDING SCALE 100 UNITS/ML VIAL SUBQ PRN (11:36)
[2020-06-27] MEDS: NACL 0.9% 1,000 ML IV SCH (11:38)
--- NOTE | 2020-06-27 13:49 | NUR ---
Patient A&Ox4 seems kind of anxious VSS took all morning medications with out issues.BS at 1130 was 183 covered with 2u lispro. Ate 50% of lunch. Has PIV placed to left AC currently has Ns running at 100cc/hr. patient has DC orders to SNF. Patient currently on 7L NC. Denies pain at the moment.
--- NOTE | 2020-06-27 16:22 | NUR ---
Assessed patients respiratory status no signs of acute respiratory distress. RR 16 deep and unlabored ,equal bilateral rise and chest fall. Stating at 90-91% on 5L NC.
--- NOTE | 2020-06-27 18:45 | NUR ---
Patient DC at 1840 Picked up BY [facility] currently in no distress. VSS. Took all belongings with him and signed all discharge paperwork.
== END 2020-06-27 18:15 | disposition home or self-care (01) | DRG 193 ==
LOC: MED 12:12 → MTU 15:24
PROVIDERS: ADMIT Family Medicine; ATTEND Family Medicine
DX: J18.9 Pneumonia, unspecified organism (principal); J96.21 Acute and chronic respiratory failure with hypoxia; E43 Unspecified severe protein-calorie malnutrition; B37.1 Pulmonary candidiasis; J90 Pleural effusion, not elsewhere classified; E03.9 Hypothyroidism, unspecified; E11.9 Type 2 diabetes mellitus without complications; I10 Essential (primary) hypertension; K21.9 Gastro-esophageal reflux disease without esophagitis; Z68.25 Body mass index [BMI] 25.0-25.9, adult; Z20.822 Contact with and (suspected) exposure to COVID-19
CPT/HCPCS: 36415; 71045; 71275; 80048; 80053; 81001; 82150; 82550; 82553; 82728; 82948; 83036; 83605; 83615; 83690; 83735; 83880; 84100; 84439; 84443; 84484; 85025; 85379; 85384; 85610; 85651; 85730; 86140; 87040; 87086; 87420; 87804; 93005; 96365; 96366; 96372; 96375; 97110; 97112; 97116; 97161-GP; 97530; 99291; J0456; J0696; J1100; J1650; J1815; J2060; J2270; J2920; J7030; J7060; Q9967; U0003